=== PATIENT | female | born 1995 | race Caucasian/White ===

== ENCOUNTER 2022-08-04 12:14 | Emergency (ER) | payer OTHER, SELFPAY ==
[2022-08-04 13:15] VITALS: BP 124/69; PULSE 78; RESP 16; TEMP 35.9; O2SAT 99; BMI 28.2
[2022-08-04] MEDS: ONDANSETRON 4 MG/2 ML INJ IV (13:33)
[2022-08-04] MEDS: SODIUM CHLORIDE 0.9% 1,000 ML 1000 ML IV ×2 (13:33→14:41)
[2022-08-04 13:44] LABS: Add Manual Diff / Slide Review NO; Basophils Absolute Auto 100 /uL (0-100); Basophils Percent Auto 0.8 % (0-2); Eosinophils Absolute Auto 100 /uL (0-450); Eosinophils Percent Auto 1.1 % (2-4); Hematocrit 37.2 % (36-46); Hemoglobin 12.7 g/dL (12.0-16.0); Lymphocytes Absolute Auto 1700 /uL (1100-4500); Lymphocytes Percent Auto 27.2 % (25-40); Mean Corpuscular HGB Conc 34.1 % (30-36); Mean Corpuscular Volume 85.2 fL (80-100); Monocytes Absolute Auto 500 /uL (0-900); Monocytes Percent Auto 8.3 % (3-14); Neutrophils Absolute Auto 4000 /uL (1500-7000); Neutrophils Percent Auto 62.6 % (50-75); Platelet Count 315 X10^3/uL (150-400); Red Blood Cell Count 4.37 X10^6/uL (4.0-5.2); Red Cell Distribution Width 13.6 % (11.6-14.8); White Blood Cell Count 6.4 X10^3/uL (4.5-11.0)
[2022-08-04 13:50] LABS: Alanine Aminotransferase 18 IU/L (<35); Albumin 4.7 g/dL (3.5-5.0); Albumin Globulin Ratio 1.5 (1.0-2.8); Alkaline Phosphatase 41 U/L (38-126); Aspartate Aminotransferase 19 IU/L (14-36); BUN Creatinine Ratio 12.6 (6-22); Bilirubin Total 0.9 mg/dL (0.2-1.3); Blood Urea Nitrogen 13 mg/dL (7-17); Calcium 9.6 mg/dL (8.4-10.2); Carbon Dioxide 30 mmol/L (22-32); Chloride 101 mmol/L (98-107); Estimated Glomerular Filt Rate > 60 mL/min (>60); Globulin 3.2 g/dL (1.7-4.1); Glucose 96 mg/dL (70-100); HEMOLYSIS < 15 (0-50); Sodium 142 mmol/L (137-145); Total Protein 7.9 g/dL (6.3-8.2)
--- NOTE | 2022-08-04 14:16 | ED_ITS ---
HPI - Nausea/Vomiting/Diarrhea <OCHOA Pappas - Last Filed: 08/04/22 15:39> General Chief complaint: Nausea/Vomiting/Diarrhea Stated complaint: nausea/no appetite x7 days Time Seen by Provider: 08/04/22 14:07 History of Present Illness HPI Narrative: 26-year-old female presents to the walk-in clinic with headache x2 weeks and lightheadedness, nausea and vomiting x1 week. Patient has been unable to keep anything down for the last 2 days and was dry heaving in the waiting room. Patient reports that she is trying to get and had similar symptoms the last time she had gotten , before the miscarriage - December 2021. Patient states that her urine tests were typically negative until she was further along when the hCG quant was positive. Patient denies any recent illness or any pain at this time. Last menstrual period was last month and is due any day. Related Data Previous Rx's Medication Instructions Recorded ondansetron 4 mg disintegrating 4 mg PO Q8H PRN nausea and 08/06/22 tablet vomiting #14 tabs Allergies Allergy/AdvReac Type Severity Reaction Status Date / Time Penicillins Allergy Verified 08/04/22 13:19 Review of Systems <OCHOA Pappas - Last Filed: 08/04/22 15:39> Review of Systems Narrative: Narrative: See HPI. GENERAL: Denies chills, fatigue, fever, sweats. HEENT: Denies sinus pain, ear pain, sore throat, difficulty swallowing. Endorses mild dizziness. RESPIRATORY: Denies dyspnea, cough, wheezing, sputum. CARDIOVASCULAR: Denies chest pain, palpitations, edema. GASTROINTESTINAL: Denies abdominal pain, diarrhea, constipation. Endorses nausea and vomiting with or without eating or drinking. : Denies dysuria, frequency, incontinence, hematuria, urinary retention, flank pain, vaginal itching, bleeding or discharge. MSK: Denies weakness, joint pain, or bony pain. No breast tenderness. SKIN: Denies rash, skin lesions, or pruritis. NEUROLOGIC: Denies weakness, dizziness, headache, numbness, confusion. PSYCHIATRIC: No concerning psychosocial issues. Patient History <OCHOA Pappas - Last Filed: 08/04/22 15:39> Social History Smoking Status: Never smoker Exam <OCHOA Pappas - Last Filed: 08/04/22 15:39> Narrative Exam Narrative: Exam Narrative: GENERAL: This is a well-nourished, well-developed patient, in no acute distress. HEAD: Atraumatic. Normocephalic. EYES: Pupils equal round and reactive. No scleral icterus, injection or drainage. CARDIOVASCULAR: Regular rate and rhythm without murmurs, peripheral pulses intact, cap refill <2 sec. RESPIRATORY: Breath sounds equal and clear bilaterally. No wheezes, rales, or rhonchi. No cough. No increased respiratory effort. No accessory muscle use. GASTROINTESTINAL: Abdomen soft, non-tender, nondistended without guarding or rebound. No suprapubic pain. MSK: Moves all extremities. Normal range of motion, no clubbing or edema. Neurovascularly intact. NEURO: A&O x 3. SKIN: Warm, dry, no rashes or lesions noted. Initial Vital Signs Initial Vital Signs: Vital Signs Temperature 96.7 F L 08/04/22 13:15 Pulse Rate 78 08/04/22 13:15 Respiratory Rate 16 08/04/22 13:15 Blood Pressure 124/69 08/04/22 13:15 Pulse Oximetry 99 08/04/22 13:15 Oxygen Delivery Method 08/04/22 13:15 Reviewed <Ольга Gordon DO - Last Filed: 08/06/22 21:29> Initial Vital Signs Initial Vital Signs: Vital Signs Temperature 96.7 F L 08/04/22 13:15 Pulse Rate 78 08/04/22 13:15 Respiratory Rate 16 08/04/22 13:15 Blood Pressure 124/69 08/04/22 13:15 Pulse Oximetry 99 08/04/22 13:15 Oxygen Delivery Method 08/04/22 13:15 Course <OCHOA Pappas - Last Filed: 08/04/22 15:39> Orders Ordered: Discontinued Medications Sodium Chloride (Normal Saline 0.9%) 1,000 mls @ 1,000 mls/hr IV BOLUS ONE Stop: 08/04/22 14:19 Last Infusion: 08/04/22 14:27 Dose: 0 mls/hr Documented By: Admin: 08/04/22 13:33 Dose: 1,000 mls/hr Documented By: MORENO Sodium Chloride (Normal Saline 0.9%) 1,000 mls @ 1,000 mls/hr IV BOLUS ONE Stop: 08/04/22 15:34 Last Infusion: 08/04/22 15:35 Dose: 0 mls/hr Documented By: Admin: 08/04/22 14:41 Dose: 1,000 mls/hr Documented By: BRADEN Ondansetron HCl (Ondansetron 4 Mg/2 Ml Inj) 4 mg IV NOW ONE Stop: 08/04/22 13:21 Last Admin: 08/04/22 13:33 Dose: 4 mg Documented By: CTS Vital Signs Vital signs: Vital Signs - 8 hr 08/04/22 13:15 Temperature 96.7 F L Pulse Rate 78 Respiratory Rate 16 Blood Pressure 124/69 Pulse Oximetry 99 Oxygen Delivery Method Room Air <Ольга Gordon DO - Last Filed: 08/06/22 21:29> Orders Ordered: Discontinued Medications Sodium Chloride (Normal Saline 0.9%) 1,000 mls @ 1,000 mls/hr IV BOLUS ONE Stop: 08/04/22 14:19 Last Infusion: 08/04/22 14:27 Dose: 0 mls/hr Documented By: Admin: 08/04/22 13:33 Dose: 1,000 mls/hr Documented By: MORENO Sodium Chloride (Normal Saline 0.9%) 1,000 mls @ 1,000 mls/hr IV BOLUS ONE Stop: 08/04/22 15:34 Last Infusion: 08/04/22 15:35 Dose: 0 mls/hr Documented By: Admin: 08/04/22 14:41 Dose: 1,000 mls/hr Documented By: BRADEN Ondansetron HCl (Ondansetron 4 Mg/2 Ml Inj) 4 mg IV NOW ONE Stop: 08/04/22 13:21 Last Admin: 08/04/22 13:33 Dose: 4 mg Documented By: MORENO Vital Signs Vital signs: Vital Signs - 8 hr 08/04/22 13:15 Temperature 96.7 F L Pulse Rate 78 Respiratory Rate 16 Blood Pressure 124/69 Pulse Oximetry 99 Oxygen Delivery Method Room Air MDM - Nausea/Vomiting/Diarrhea <OCHOA Pappas - Last Filed: 08/04/22 15:39> Differential Diagnosis Differential diagnosis: Likely other (Nausea and vomiting/ viral illness) Lab Data Result diagrams: 08/04/22 13:28 08/04/22 13:28 Labs: Lab Results 08/04/22 08/04/22 Range/Units 13:28 13:28 WBC 6.4 (4.5-11.0) X10^3/uL RBC 4.37 (4.0-5.2) X10^6/uL Hgb 12.7 (12.0-16.0) g/dL Hct 37.2 (36-46) % MCV 85.2 (80-100) fL MCH 29.0 (26-34) PG MCHC 34.1 (30-36) % RDW 13.6 (11.6-14.8) % Plt Count 315 (150-400) X10^3/uL Neut % (Auto) 62.6 (50-75) % Lymph % (Auto) 27.2 (25-40) % [place] % (Auto) 8.3 (3-14) % Eos % (Auto) 1.1 L (2-4) % Baso % (Auto) 0.8 (0-2) % Neut # (Auto) 4000 (2300-1713) /uL Lymph # (Auto) 1700 (8202-9847) /uL [place] # (Auto) 500 (0-900) /uL Eos # (Auto) 100 (0-450) /uL Baso # (Auto) 100 (0-100) /uL Sodium 142 (137-145) mmol/L Potassium 4.0 (3.4-5.1) mmol/L Chloride 101 (98-107) mmol/L Carbon Dioxide 30 (22-32) mmol/L BUN 13 (7-17) mg/dL Creatinine 1.03 (0.52-1.04) mg/dL Estimated GFR > 60 (>60) mL/min BUN/Creatinine Ratio 12.6 (6-22) Glucose 96 (70-100) mg/dL Calcium 9.6 (8.4-10.2) mg/dL Total Bilirubin 0.9 (0.2-1.3) mg/dL AST 19 (14-36) IU/L ALT 18 (<35) IU/L Alkaline Phosphatase 41 (38-126) U/L Total Protein 7.9 (6.3-8.2) g/dL Albumin 4.7 (3.5-5.0) g/dL Globulin 3.2 (1.7-4.1) g/dL Albumin/Globulin Ratio 1.5 (1.0-2.8) HCG, Quant < 2.4 mIU/mL Point of Care Testing Test Results Negative Urine Dip Bedside Urine Glucose Negative Bedside Urine Bilirubin - Negative Bedside Urine Ketone - Negative Urine Specific [place] 1.005 Bedside Urine Occult Blood - Negative Bedside Urine pH 8.0 Bedside Urine Protein - Negative Bedside Urine Urobilinogen - Negative Bedside Urine Nitrite - Negative Bedside Urine Leukocytes - Negative Esterase MDM Narrative Medical decision making narrative: 26-year-old female presents to the walk-in clinic with nausea and vomiting x2 days. Patient reports that she is feeling better after 1 L of normal saline and ondansetron. Assessment was encouraging. Labs were all unremarkable, urine hCG and blood quant were both negative. Patient has received 2 L of normal saline a nd is feeling better, has urinated, and is able to drink without nausea vomiting.. Patient a little discouraged because they were hoping that she was . I suspect patient is having a viral illness which is the cause for the nausea and vomiting. Discussed plan of care and return precautions with patient and , who were agreeable with course of action. <Ольга Gordon, DO - Last Filed: 08/06/22 21:29> Lab Data Labs: Lab Results 08/04/22 08/04/22 Range/Units 13:28 13:28 WBC 6.4 (4.5-11.0) X10^3/uL RBC 4.37 (4.0-5.2) X10^6/uL Hgb 12.7 (12.0-16.0) g/dL Hct 37.2 (36-46) % MCV 85.2 (80-100) fL MCH 29.0 (26-34) PG MCHC 34.1 (30-36) % RDW 13.6 (11.6-14.8) % Plt Count 315 (150-400) X10^3/uL Neut % (Auto) 62.6 (50-75) % Lymph % (Auto) 27.2 (25-40) % [place] % (Auto) 8.3 (3-14) % Eos % (Auto) 1.1 L (2-4) % Baso % (Auto) 0.8 (0-2) % Neut # (Auto) 4000 (9767-6174) /uL Lymph # (Auto) 1700 (4494-6934) /uL [place] # (Auto) 500 (0-900) /uL Eos # (Auto) 100 (0-450) /uL Baso # (Auto) 100 (0-100) /uL Sodium 142 (137-145) mmol/L Potassium 4.0 (3.4-5.1) mmol/L Chloride 101 (98-107) mmol/L Carbon Dioxide 30 (22-32) mmol/L BUN 13 (7-17) mg/dL Creatinine 1.03 (0.52-1.04) mg/dL Estimated GFR > 60 (>60) mL/min BUN/Creatinine Ratio 12.6 (6-22) Glucose 96 (70-100) mg/dL Calcium 9.6 (8.4-10.2) mg/dL Total Bilirubin 0.9 (0.2-1.3) mg/dL AST 19 (14-36) IU/L ALT 18 (<35) IU/L Alkaline Phosphatase 41 (38-126) U/L Total Protein 7.9 (6.3-8.2) g/dL Albumin 4.7 (3.5-5.0) g/dL Globulin 3.2 (1.7-4.1) g/dL Albumin/Globulin Ratio 1.5 (1.0-2.8) HCG, Quant < 2.4 mIU/mL Point of Care Testing Test Results Negative Urine Dip Bedside Urine Glucose Negative Bedside Urine Bilirubin - Negative Bedside Urine Ketone - Negative Urine Specific [place] 1.005 Bedside Urine Occult Blood - Negative Bedside Urine pH 8.0 Bedside Urine Protein - Negative Bedside Urine Urobilinogen - Negative Bedside Urine Nitrite - Negative Bedside Urine Leukocytes - Negative Esterase Discharge Plan Departure Patient Disposition: Home Clinical Impression: Acute vomiting Instructions: DI for Dehydration -- Adult, Nausea and Vomiting-Adult Activity Restrictions/Additional Instructions: *You have been diagnosed with nausea and vomiting secondary to a viral illness. As we discussed, your labs were normal and the urine hCG and blood test were both negative. We have been able to fully hydrate you and should hopefully help with your symptoms. Please continue to drink small amounts of water at a time to facilitate hydration without causing vomiting. For any worsening symptoms, please feel free to return to the emergency department, otherwise, please follow-up with your family doctor as needed. *What to do: *Please continue to take your regular medications as directed. [ ] New medication prescriptions sent to your pharmacy: [ ] [ ] New medication written as a paper prescription [x ] No new medications given *Please follow up with your primary care provider in 2-3 days, call for an appointment. Let them know you were seen in the Emergency Department and that we ask that you be seen in follow up. We will electronically transmit a record of today's note if your PCP is in our system *If you do not have a primary care provider please contact the [facility] Resource line at [phone]. They will ask some questions about your medical history and help get you set up with a doctor in the community. ? Return to ER if you should have any new, worsening or concerning symptoms, such as worsening pain, severe headache, confusion, chest pain, difficulty breathing, fever greater than 101 F, shaking chills, persistent vomiting to the point that you cannot drink fluids, or other new or worsening symptoms. Prescriptions: No Action ondansetron 4 mg tablet,disintegrating 4 mg PO Q8H PRN (Reason: nausea and vomiting) Qty: 14 0RF Visit Report Forms: Patient Portal/API <Ольга Gordon DO - Last Filed: 08/06/22 21:29> [facility] Attestation: I was immediately available in the department for consultation. Documentation has been reviewed. I agree with assessment and plan.
[2022-08-04 14:18] LABS: HCG Quantitative /Beta subunit < 2.4 mIU/mL
[2022-08-04 15:52] VITALS: BP 124/72; PULSE 77; RESP 16; O2SAT 97
== END 2022-08-04 15:52 | disposition home or self-care (01) ==
PROVIDERS: Emergency Medicine; Emergency Provider Registered Nurse
DX: R11.2 Nausea with vomiting, unspecified (principal); E86.0 Dehydration
CPT/HCPCS: 36415; 80053; 81003; 81025; 84702; 85025; 96361; 96374; 99284; J2405

== ENCOUNTER 2022-08-06 12:35 | Emergency (ER) | payer OTHER, SELFPAY ==
[2022-08-06 12:41] VITALS: BP 124/74; PULSE 81; RESP 18; TEMP 36.2; O2SAT 99; BMI 27.0
[2022-08-06] MEDS: ONDANSETRON 4 MG ODT PO (12:51)
[2022-08-06 13:09] LABS: RBC Urine 1-5/HPF (0-5/HPF); WBC Urine 1-5/HPF (0-5/HPF)
[2022-08-06 13:10] LABS: Bacteria Urine None Seen; Culture Indicated Urine Specimen Cultured; Squamous Epithelial Cell Urine 1-5 /HPF (0-5/HPF)
[2022-08-06 13:32] VITALS: BP 112/72; PULSE 78; RESP 17; O2SAT 99
--- NOTE | 2022-08-06 15:07 | ED.NAVMDI ---
HPI - Nausea/Vomiting/Diarrhea <Halima Barragan PA-C - Last Filed: 08/06/22 15:11> General Chief complaint: Nausea/Vomiting/Diarrhea Stated complaint: ER visit 08/04 nausea/not able to eat Time Seen by Provider: 08/06/22 12:48 Source: patient Mode of arrival: Ambulatory History of Present Illness HPI Narrative: 26-year-old female presents to the ED with 5 days of nausea, vomiting. Patient was seen in the ED on 08/04/2022 for the same complaint, nausea controlled with IV fluids and Zofran. Patient returns today due to repeated vomiting, unable to keep down solids or liquids. Patient denies fever, chills, chest pain, shortness of breath, abdominal pain, diarrhea, constipation, lightheadedness, dizziness, syncope. 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 Related Data Previous Rx's Medication Instructions Recorded ondansetron 4 mg disintegrating 4 mg PO Q8H PRN nausea and 08/06/22 tablet vomiting #14 tabs Allergies Allergy/AdvReac Type Severity Reaction Status Date / Time Penicillins Allergy Verified 08/04/22 13:19 Review of Systems <Halima Barragan PA-C - Last Filed: 08/06/22 15:11> Review of Systems ROS Unobtainable: All systems reviewed & are unremarkable except as noted in HPI and below Constitutional Constitutional: Denies chills, Denies fatigue, Denies fever(s), Denies frequent falls, Denies lethargy and Denies weakness Eyes Eyes: Denies change in vision, Denies eye discharge, Denies irritation and Denies loss of vision ENT Ears, Nose, Mouth, and Throat: Denies change in voice, Denies dizziness, Denies neck pain, Denies sore throat and Denies throat swelling Cardiovascular Cardiovascular: Denies chest pain, Denies irregular heart rhythm, Denies lightheadedness, Denies palpitations, Denies dyspnea, Denies dyspnea on exertion and Denies orthopnea Respiratory Respiratory: Denies cough, Denies dyspnea, Denies dyspnea on exertion and Denies wheezing Gastrointestinal Gastrointestinal: Denies abdominal pain, Denies change in bowel habits, Denies diarrhea, Reports nausea and Reports vomiting Genitourinary Genitourinary: Denies hematuria, Denies flank pain, Denies urinary incontinence and Denies urinary urgency Musculoskeletal Musculoskeletal: Denies back pain, Denies muscle weakness, Denies neck pain, Denies numbness and Denies tingling Integumentary/Breasts Skin/Breast: Denies pruritus, Denies erythema, Denies rash and Denies wounds Neurologic Neurologic: Denies behavioral changes, Denies confusion, Denies dizziness, Denies frequent falls, Denies loss of vision, Denies numbness, Denies tingling and Denies weakness Psychiatric Psychiatric: Denies anxiety, Denies behavioral changes, Denies confusion, Denies depression, Denies homicidal ideation and Denies suicidal ideation Endocrine Endocrine: Denies fatigue, Denies flushing and Denies palpitations Hematologic/Lymphatic Hematologic/Lymphatic: Denies easy bruising Allergic/Immunologic Allergic/Immunologic: Denies urticaria, Denies throat swelling and Denies wheezing Patient History <Halima Barragan PA-C - Last Filed: 08/06/22 15:11> Social History Smoking Status: Never smoker Smoking Status: Never smoker alcohol intake frequency: a few times a month Substance Use Type: does not use Exam <Halima Barragan PA-C - Last Filed: 08/06/22 15:11> Narrative Exam Narrative: Const General:?cooperative, healthy appearing and comfortable [facility] Head:?normal to inspection Ears:?hearing grossly normal bilaterally Nose:?external nose normal Face and sinus:?normal facial exam and sinuses nontender Mouth:?oral mucosae normal Throat:?posterior oropharynx normal Eyes General:?appearance normal, both eyes and all related structures Neck Neck:?normal visual inspection and no lymphadenopathy noted Resp Effort & Inspection:?normal respiratory effort Auscultation:?clear to auscultation bilaterally Cardio Rate:?regular rate Rhythm:?regular rhythm GI Abdomen is soft, nondistended, nontender to palpation. Neuro General:?patient alert, patient awake and patient oriented x3 Initial Vital Signs Initial Vital Signs: Vital Signs Temperature 97.1 F L 08/06/22 12:41 Pulse Rate 81 08/06/22 12:41 Respiratory Rate 18 08/06/22 12:41 Blood Pressure 124/74 08/06/22 12:41 Pulse Oximetry 99 08/06/22 12:41 Oxygen Delivery Method 08/06/22 12:41 <Vitaliy Ridley DO - Last Filed: 08/06/22 16:13> Initial Vital Signs Initial Vital Signs: Vital Signs Temperature 97.1 F L 08/06/22 12:41 Pulse Rate 81 08/06/22 12:41 Respiratory Rate 18 08/06/22 12:41 Blood Pressure 124/74 08/06/22 12:41 Pulse Oximetry 99 08/06/22 12:41 Oxygen Delivery Method 08/06/22 12:41 Course <Halima Barragan PA-C - Last Filed: 08/06/22 15:11> Orders Ordered: ED Orders 08/06/22 12:55 Urine Culture Stat Urine Microscopic Stat Discontinued Medications Ondansetron HCl (Ondansetron 4 Mg Odt) 4 mg PO NOW ONE Stop: 08/06/22 12:49 Last Admin: 08/06/22 12:51 Dose: 4 mg Documented By: ALTHEA Vital Signs Vital signs: Vital Signs - 8 hr 08/06/22 12:41 08/06/22 13:32 Temperature 97.1 F L Pulse Rate 81 78 Respiratory Rate 18 17 Blood Pressure 124/74 112/72 Pulse Oximetry 99 99 Oxygen Delivery Method Room Air Room Air <Vitaliy Ridley DO - Last Filed: 08/06/22 16:13> Orders Ordered: ED Orders 08/06/22 12:55 Urine Culture Stat Urine Microscopic Stat Discontinued Medications Ondansetron HCl (Ondansetron 4 Mg Odt) 4 mg PO NOW ONE Stop: 08/06/22 12:49 Last Admin: 08/06/22 12:51 Dose: 4 mg Documented By: ALTHEA Vital Signs Vital signs: Vital Signs - 8 hr 08/06/22 12:41 08/06/22 13:32 Temperature 97.1 F L Pulse Rate 81 78 Respiratory Rate 18 17 Blood Pressure 124/74 112/72 Pulse Oximetry 99 99 Oxygen Delivery Method Room Air Room Air MDM - Nausea/Vomiting/Diarrhea <Halima Barragan PA-C - Last Filed: 08/06/22 15:11> Lab Data Labs: Lab Results 08/06/22 Range/Units 12:55 Urine RBC 1-5/hpf (0-5/HPF) Urine WBC 1-5/hpf (0-5/HPF) Ur Squamous Epith Cells 1-5 /hpf (0-5/HPF) Urine Bacteria None seen (None) Ur Culture Indicated? Specimen cultured Point of Care Testing Test Results Negative Urine Dip Bedside Urine Glucose Negative Bedside Urine Bilirubin - Negative Bedside Urine Ketone - Negative Urine Specific [place] 1.020 Bedside Urine Occult Blood +++ Bedside Urine pH 6.0 Bedside Urine Protein - Negative Bedside Urine Urobilinogen - Negative Bedside Urine Nitrite - Negative Bedside Urine Leukocytes - Negative Esterase MDM Narrative Medical decision making narrative: 26-year-old female presents to the ED with 5 days of nausea, vomiting. Patient's symptoms likely due to gastroenteritis. Patient has nausea and vomiting was controlled with Zofran. Discharge patient home with a prescription for Zofran, recommend continued hydration. ED return precautions discussed with patient. Patient verbalized understanding. <Vitaliy Ridley DO - Last Filed: 08/06/22 16:13> Lab Data Labs: Lab Results 08/06/22 Range/Units 12:55 Urine RBC 1-5/hpf (0-5/HPF) Urine WBC 1-5/hpf (0-5/HPF) Ur Squamous Epith Cells 1-5 /hpf (0-5/HPF) Urine Bacteria None seen (None) Ur Culture Indicated? Specimen cultured Point of Care Testing Test Results Negative Urine Dip Bedside Urine Glucose Negative Bedside Urine Bilirubin - Negative Bedside Urine Ketone - Negative Urine Specific [place] 1.020 Bedside Urine Occult Blood +++ Bedside Urine pH 6.0 Bedside Urine Protein - Negative Bedside Urine Urobilinogen - Negative Bedside Urine Nitrite - Negative Bedside Urine Leukocytes - Negative Esterase Discharge Plan Departure Patient Disposition: Home Clinical Impression: Acute vomiting Instructions: DI for Vomiting -- Adult Activity Restrictions/Additional Instructions: You were evaluated in the ED today for nausea and vomiting. Your symptoms improved with Zofran. Your symptoms are likely due to a stomach flu or gastroenteritis. You are being discharged home with a prescription for Zofran. Please continue to stay well hydrated. Return to the ED if you are vomiting despite taking the Zofran, you were unable to keep down any water or solids. Prescriptions: New ondansetron 4 mg tablet,disintegrating 4 mg PO Q8H PRN (Reason: nausea and vomiting) Qty: 14 0RF Stand Alone Forms: Work Release Note Visit Report Forms: Patient Portal/API <DO Chantal Ceja Last Filed: 08/06/22 16:13> Cosign ED Attending Cosignature Attestation: Dr Ridley Co-Sign Statement: I was available for consultation during this patient's emergency department visit. This chart is signed by myself for administrative purposes only. I did not have direct contact with this patient during this visit. They were seen independently by the APC.
== END 2022-08-06 14:22 | disposition home or self-care (01) ==
PROVIDERS: Emergency Provider Student in an Organized Health Care Education/Training Program
DX: R11.2 Nausea with vomiting, unspecified (principal)
CPT/HCPCS: 81003; 81015; 81025; 87086; 99283

== ENCOUNTER 2022-08-26 09:19 | Emergency (ER) | payer OTHER, SELFPAY ==
[2022-08-26 09:31] VITALS: BP 116/86; PULSE 88; RESP 16; O2SAT 97; BMI 26.3
--- NOTE | 2022-08-26 10:37 | DI.US.S_ITS ---
PROCEDURE: US ABDOMEN LIMITED INDICATIONS: ABDOMINAL PAIN TECHNIQUE: Real-time focused scanning was performed of the abdomen, with image documentation. COMPARISON: None. FINDINGS: The liver is normal in size and demonstrates no focal lesions. The main portal vein demonstrates normal size and demonstrates normal appearing, hepatopetal flow. No findings of gallstones or sludge are seen. The gallbladder wall is not thickened, measuring 3 mm or less. No specific pericholecystic fluid is seen. The sonographic Escobedo sign is negative. There is no biliary dilatation, the common bile duct measures 3 mm. No significant pancreatic abnormality is seen on these images. Incidental note is made of mild right kidney pelvicaliectasis, without lily hydronephrosis. IMPRESSION: The gallbladder demonstrates a normal sonographic appearance. No biliary dilatation is seen. Mild right kidney pelvicaliectasis is noted, yet without lily hydronephrosis. Dictated by: Enrike Hernandez M.D. on 08/26/2022 at 11:32 Approved by: Enrike Hernandez M.D. on 08/26/2022 at 11:32
--- NOTE | 2022-08-26 10:38 | ED.NAVMDI ---
HPI - Nausea/Vomiting/Diarrhea General Chief complaint: Nausea/Vomiting/Diarrhea Stated complaint: stomach issues, nausea, here 1 month ago Time Seen by Provider: 08/26/22 10:27 History of Present Illness HPI Narrative: Patient here with partner. Complains of generalized abdominal discomfort for the past 4 weeks. Worse with eating and causes cramping. Has nausea with this. [facility] and had blood work done but did not include H pylori. No imaging has been done. Patient seen here twice earlier this month. No imaging was done. Patient has not been referred to GI specialist or general surgeon for endoscopy. Patient in no distress at this time. Related Data Previous Rx's Medication Instructions Recorded ondansetron 4 mg disintegrating 4 mg PO Q8H PRN nausea and 08/06/22 tablet vomiting #14 tabs dicyclomine 20 mg tablet 20 mg PO BID #20 tabs 08/26/22 sucralfate 1 gram tablet (Carafate) 1 g PO BID #30 tabs 08/26/22 Allergies Allergy/AdvReac Type Severity Reaction Status Date / Time Penicillins Allergy Verified 08/04/22 13:19 Review of Systems Review of Systems Narrative: GENERAL: negative chills, fatigue, malaise, fever, sweats. HEENT: negative sinus pain, ear pain, sore throat RESPIRATORY: negative dyspnea, cough CARDIOVASCULAR: negative chest pain, palpitations GASTROINTESTINAL: Positive nausea, vomiting, abdominal pain : negative dysuria, frequency, hematuria MUSCULOSKELETAL: negative muscle or bony pain SKIN: negative rash, skin lesions NEUROLOGIC: negative weakness, numbness ROS Unobtainable: All systems reviewed & are unremarkable except as noted in HPI and below Patient History Social History Smoking Status: Never smoker Smoking Status: Never smoker alcohol intake frequency: a few times a month Substance Use Type: does not use Exam Narrative Exam Narrative: GENERAL: in no distress, not toxic not dyspneic HEAD: Normocephalic. EYES: Pupils equal round No scleral icterus. ENT: Mucous membranes moist. NECK: Trachea midline. CARDIOVASCULAR: Regular rate and rhythm without murmurs RESPIRATORY: Clear to auscultation. Breath sounds equal bilaterally. No wheezes, rales, or rhonchi. GASTROINTESTINAL: Abdomen soft, non-tender, no CVA tenderness, negative Escobedo sign. No CVA tenderness. No peritoneal signs. Bowel sounds are present EXTREMITIES: No gross deformities. BACK: No flank tenderness. NEURO: AOx4. SKIN: Warm and dry PSYCH: Not anxious, is cooperative Initial Vital Signs Initial Vital Signs: Vital Signs Pulse Rate 88 08/26/22 09:31 Respiratory Rate 16 08/26/22 09:31 Blood Pressure 116/86 08/26/22 09:31 Pulse Oximetry 97 08/26/22 09:31 Oxygen Delivery Method 08/26/22 09:31 Course Course Course Narrative: No new issues during course of stay Orders Ordered: ED Orders 08/26/22 10:37 US abdomen limited Stat 08/26/22 10:55 CBC Auto Diff [Complete Blood Count AUTO DIFF] Stat CMP [Comprehensive Metabolic Panel] Stat H pylori Ab, IgG Stat Lipase Stat Reevaluation(s) Reevaluation #1: Patient and partner understand H pylori is a send out. She will have to call back for results. She does have primary care to follow up as well. Referral to General surgery for endoscopy given. Return precautions reviewed with her. She does desire discharge home Time: 13:27 Vital Signs Vital signs: Vital Signs - 8 hr 08/26/22 09:31 08/26/22 13:10 Pulse Rate 88 81 Respiratory Rate 16 18 Blood Pressure 116/86 119/67 Pulse Oximetry 97 95 Oxygen Delivery Method Room Air Room Air MDM - Nausea/Vomiting/Diarrhea Differential Diagnosis Differential diagnosis: Likely other (Cholelithiasis cholecystitis gastritis GERD hiatal hernia/IBS) Lab Data Result diagrams: 08/26/22 10:55 08/26/22 10:55 Labs: Lab Results 08/26/22 08/26/22 Range/Units 10:55 10:55 WBC 7.0 (4.5-11.0) X10^3/uL RBC 4.49 (4.0-5.2) X10^6/uL Hgb 13.0 (12.0-16.0) g/dL Hct 38.3 (36-46) % MCV 85.3 (80-100) fL MCH 28.9 (26-34) PG MCHC 33.9 (30-36) % RDW 13.6 (11.6-14.8) % Plt Count 298 (150-400) X10^3/uL Neut % (Auto) 64.6 (50-75) % Lymph % (Auto) 26.9 (25-40) % [place] % (Auto) 7.4 (3-14) % Eos % (Auto) 0.5 L (2-4) % Baso % (Auto) 0.6 (0-2) % Neut # (Auto) 4500 (7407-8464) /uL Lymph # (Auto) 1900 (0102-7380) /uL [place] # (Auto) 500 (0-900) /uL Eos # (Auto) 0 (0-450) /uL Baso # (Auto) 0 (0-100) /uL Sodium 139 (137-145) mmol/L Potassium 4.1 (3.4-5.1) mmol/L Chloride 101 (98-107) mmol/L Carbon Dioxide 29 (22-32) mmol/L BUN 12 (7-17) mg/dL Creatinine 0.97 (0.52-1.04) mg/dL Estimated GFR > 60 (>60) mL/min BUN/Creatinine Ratio 12.4 (6-22) Glucose 92 (70-100) mg/dL Calcium 9.0 (8.4-10.2) mg/dL Total Bilirubin 0.7 (0.2-1.3) mg/dL AST 15 (14-36) IU/L ALT 14 (<35) IU/L Alkaline Phosphatase 43 (38-126) U/L Total Protein 7.6 (6.3-8.2) g/dL Albumin 4.5 (3.5-5.0) g/dL Globulin 3.1 (1.7-4.1) g/dL Albumin/Globulin Ratio 1.5 (1.0-2.8) Lipase 88 (23-300) U/L Urine Dip Bedside Urine Glucose Negative Bedside Urine Bilirubin - Negative Bedside Urine Ketone - Negative Urine Specific [place] 1.010 Bedside Urine Occult Blood - Negative Bedside Urine pH 7.5 Bedside Urine Protein - Negative Bedside Urine Urobilinogen - Negative Bedside Urine Nitrite - Negative Bedside Urine Leukocytes - Negative Esterase Imaging Data US - abdomen: Radiologist's Impression: [address] [address] Ultrasound Report Signed Patient: Sammi Meade MR#: [id number] : 1995 Acct:[id number] Age/Sex: 26 / F Date of Service: 08/26/22 Loc: ED Accession Number: [id number] ?? Procedure: US abdomen limited Ordering Provider: Gal Sol MD PROCEDURE: US ABDOMEN LIMITED ? INDICATIONS:? ABDOMINAL PAIN ? TECHNIQUE:? Real-time focused scanning was performed of the abdomen, with image documentation.? ? COMPARISON:? None. ? FINDINGS:? The liver is normal in size and demonstrates no focal lesions. The main portal vein demonstrates normal size and demonstrates normal appearing, hepatopetal flow.? ? No findings of gallstones or sludge are seen.? The gallbladder wall is not thickened, measuring 3 mm or less.? No specific pericholecystic fluid is seen.? The sonographic Escobedo sign is negative. ? There is no biliary dilatation, the common bile duct measures 3 mm.? ? No significant pancreatic abnormality is seen on these images.? ? Incidental note is made of mild right kidney pelvicaliectasis, without lily hydronephrosis. ? ? IMPRESSION:? The gallbladder demonstrates a normal sonographic appearance. No biliary dilatation is seen. ? Mild right kidney pelvicaliectasis is noted, yet without lily hydronephrosis. ? ? Dictated by: Enrike Hernandez M.D. on 08/26/2022 at 11:32 ? ? Approved by: Enrike Hernandez M.D. on 08/26/2022 at 11:32 ? MDM Narrative Medical decision making narrative: Appropriate for discharge home for outpatient follow up for endoscopy EGD and GI referral from primary care. I did give patient referral for General surgery here. Pain and nausea control at time of discharge. Return precautions reviewed with her. Patient and partner desire discharge home Discharge Plan Departure Patient Disposition: Home Clinical Impression: Abdominal pain Instructions: DI for Abdominal Pain-Adult Activity Restrictions/Additional Instructions: Continue home medications and nausea medication. Return if worse if any questions or concerns. Please call provided general surgery office to schedule endoscopy of the stomach. H pylori blood test will likely result in the next 48 hours. You may call for results. Return if worse if any questions or concerns. No fried fatty greasy foods or spicy foods. Prescriptions: New sucralfate [Carafate] 1 gram tablet 1 g PO BID Qty: 30 0RF dicyclomine 20 mg tablet 20 mg PO BID Qty: 20 0RF No Action ondansetron 4 mg tablet,disintegrating 4 mg PO Q8H PRN (Reason: nausea and vomiting) Qty: 14 0RF Referrals: Jackson Gao MD [Physician] - Provider,Shakila CASILLAS [Primary Care Provider] - Visit Report Forms: Patient Portal/API
[2022-08-26 11:14] LABS: Add Manual Diff / Slide Review NO; Basophils Absolute Auto 0 /uL (0-100); Basophils Percent Auto 0.6 % (0-2); Eosinophils Absolute Auto 0 /uL (0-450); Eosinophils Percent Auto 0.5 % (2-4); Hematocrit 38.3 % (36-46); Lymphocytes Absolute Auto 1900 /uL (1100-4500); Lymphocytes Percent Auto 26.9 % (25-40); Mean Corpuscular HGB Conc 33.9 % (30-36); Mean Corpuscular Hemoglobin 28.9 PG (26-34); Mean Corpuscular Volume 85.3 fL (80-100); Monocytes Absolute Auto 500 /uL (0-900); Monocytes Percent Auto 7.4 % (3-14); Neutrophils Absolute Auto 4500 /uL (1500-7000); Neutrophils Percent Auto 64.6 % (50-75); Platelet Count 298 X10^3/uL (150-400); Red Blood Cell Count 4.49 X10^6/uL (4.0-5.2); Red Cell Distribution Width 13.6 % (11.6-14.8)
[2022-08-26 11:40] LABS: Alanine Aminotransferase 14 IU/L (<35); Albumin 4.5 g/dL (3.5-5.0); Albumin Globulin Ratio 1.5 (1.0-2.8); Alkaline Phosphatase 43 U/L (38-126); Aspartate Aminotransferase 15 IU/L (14-36); BUN Creatinine Ratio 12.4 (6-22); Bilirubin Total 0.7 mg/dL (0.2-1.3); Blood Urea Nitrogen 12 mg/dL (7-17); Carbon Dioxide 29 mmol/L (22-32); Chloride 101 mmol/L (98-107); Estimated Glomerular Filt Rate > 60 mL/min (>60); Globulin 3.1 g/dL (1.7-4.1); Glucose 92 mg/dL (70-100); HEMOLYSIS < 15 (0-50); Lipase 88 U/L (23-300); Potassium 4.1 mmol/L (3.4-5.1); Sodium 139 mmol/L (137-145); Total Protein 7.6 g/dL (6.3-8.2)
[2022-08-26 13:10] VITALS: BP 119/67; PULSE 81; RESP 18; O2SAT 95
--- NOTE | 2022-08-30 16:34 | PC.NURSE ---
pt called asking about result of H pylori. lab still pending.
--- NOTE | 2022-10-10 19:20 | PM.CALLCOV.1 ---
Call Coverage Note Note Date of Patient Contact: 10/10/22 Time of Patient Contact: 19:00 Narrative of Care Provided: Sammi called to report more bleeding since this morning. Had a blob of brown discharge approx the size of a scarlett. Denies any cramping or red vaginal bleeding. History of SAB x 1 at 8 weeks that did not involve much pain, but lots of bleeding. This does not remind her of that time, but is concerning to her. Has not yet had appointment for . Scheduled with Dr. Ware next week. approx 9 weeks Unknown blood type Review s/sx of SAB and warning signs/when to call back. Provided reassurance and realistic expectations about early bleeding.
== END 2022-08-26 13:34 | disposition home or self-care (01) ==
PROVIDERS: Emergency Provider Emergency Medicine
DX: R10.84 Generalized abdominal pain (principal)
CPT/HCPCS: 36415; 76705; 80053; 81003; 81025; 83690; 85025; 86677; 99282; 99284

== ENCOUNTER → 2022-10-11 16:33 | Outpatient (CLI) | payer OTHER, SELFPAY ==
[2022-10-11 16:58] LABS: Add Manual Diff / Slide Review NO; Basophils Absolute Auto 0 /uL (0-100); Basophils Percent Auto 0.4 % (0-2); Eosinophils Absolute Auto 100 /uL (0-450); Eosinophils Percent Auto 0.9 % (2-4); Hematocrit 36.2 % (36-46); Hemoglobin 12.4 g/dL (12.0-16.0); Lymphocytes Absolute Auto 1800 /uL (1100-4500); Lymphocytes Percent Auto 26.8 % (25-40); Mean Corpuscular HGB Conc 34.2 % (30-36); Mean Corpuscular Hemoglobin 29.3 PG (26-34); Mean Corpuscular Volume 85.8 fL (80-100); Monocytes Absolute Auto 400 /uL (0-900); Monocytes Percent Auto 6.7 % (3-14); Neutrophils Absolute Auto 4300 /uL (1500-7000); Neutrophils Percent Auto 65.2 % (50-75); Platelet Count 341 X10^3/uL (150-400); Red Blood Cell Count 4.23 X10^6/uL (4.0-5.2); Red Cell Distribution Width 13.6 % (11.6-14.8); White Blood Cell Count 6.5 X10^3/uL (4.5-11.0)
[2022-10-11 18:00] LABS: Appearance Urine UA CLEAR; Bilirubin Urine UA NEGATIVE (NEGATIVE); Color Urine UA YELLOW; Glucose Urine UA NEGATIVE (Negative); Ketones Urine UA NEGATIVE (NEGATIVE); Leukocyte Esterase Urine UA NEGATIVE (NEGATIVE); Nitrite Urine UA NEGATIVE (Negative); Occult Blood Urine UA 2+ (Negative); Protein Urine UA NEGATIVE (Negative); Specific Gravity Urine UA 1.025 (1.000-1.035); Urobilinogen Urine UA 0.2 E.U./dL (0.2); pH Urine UA 6.5 (4.5-8.0)
[2022-10-11 18:15] LABS: Bacteria Urine Moderate (10-30); RBC Urine 1-5/HPF (0-5/HPF); Squamous Epithelial Cell Urine 1-5 /HPF (0-5/HPF); WBC Urine 0-1/HPF (0-5/HPF)
[2022-10-11 18:40] LABS: HCG Quantitative /Beta subunit 5655.6 mIU/mL
[2022-10-12 18:55] LABS: HIV 1 & 2 Ab/Ag 4th Gen Combo NEGATIVE (NEGATIVE); Hep C Virus Ab w/Reflex Quant NEGATIVE s/c (NEGATIVE); Hepatitis B Surface Antigen NEGATIVE s/c (NEGATIVE)
[2022-10-13 04:25] LABS: RPR Screen Non Reactive (Non Reactive)
[2022-10-13 08:10] LABS: Varicella IgG Antibody 2258 index (Immune >165)
== END ==
PROVIDERS: Referring Provider Obstetrics & Gynecology; Visit Provider Obstetrics & Gynecology
DX: O20.9 Hemorrhage in early pregnancy, unspecified (principal); Z3A.00 Weeks of gestation of pregnancy not specified
CPT/HCPCS: 36415; 80055; 81003; 81015; 84702; 86787; 86803; 86850; 86900; 86901; 87086; 87389

== ENCOUNTER 2022-10-12 05:45 | Emergency (ER) | payer OTHER, SELFPAY ==
--- NOTE | 2022-10-12 05:53 | DI.US.S_ITS ---
PROCEDURE: US OB <= 14 WEEKS FETUS INDICATIONS: BLEEDING, CRAMPING OUTSIDE/PRIOR DATING DATA: Last menstrual period (LMP): Unknown. LMP-based estimated date of delivery (GIANCARLO): Unknown. First dating scan (date and location): 10/12/2022. Estimated date of delivery (GIANCARLO) from first dating scan: 06/07/2023. TECHNIQUE: Real-time scanning was performed of the fetus and maternal pelvic organs, with image documentation. Endovaginal scanning was also performed to better visualize the fetus and maternal ovaries. COMPARISON: None. FINDINGS: Embryo: [place]-rump length measuring 0.3 cm corresponding to estimated gestational age of 6 weeks 0 days. Gestational sac is located in the lower uterine segment. Heart rate: No cardiac motion detected. A yolk sac is seen. Maternal organs: Ovaries are within normal limits. Left corpus luteum. IMPRESSION: 1. [place] intrauterine located in the lower uterine segment with crown rump length measuring less than 7 mm. No cardiac motion detected. Concern for portion in progress. Ultrasound findings suspicious for, but not diagnostic of failure. 2. No perigestational hemorrhage. Recommend trending beta hCG and if indicated short-term follow-up OB/pelvic ultrasound. This report is concordant with the overnight preliminary interpretation. We strive to produce accurate, complete, and clear reports of imaging services. To assist us in improving patient care, this report was composed using standard report templates and voice recognition software. Therefore, it may contain abnormal punctuation, insertions and/or omissions. Occasional wrong-word or sound-alike substitutions may occur. Though we review the report and make efforts to correct it, we do recommend that the report be read carefully in proper context to recognize any text inaccuracies. Dictated by: Bennie Fong M.D. on 10/12/2022 at 7:54 Approved by: Bennie Fong M.D. on 10/12/2022 at 8:00
--- NOTE | 2022-10-12 05:58 | ED.PREGNANCY ---
HPI - General Chief complaint: Vaginal Bleeding Stated complaint: possible miscarriage Time Seen by Provider: 10/12/22 05:49 Source: patient, RN notes reviewed and old records reviewed Mode of arrival: Ambulatory Limitations: no limitations History of Present Illness HPI Narrative: This is a 19-year-old female on bupropion, with 1 prior spontaneous miscarriage. Patient states last menstrual period was in July. She is believed to be approximately 9 weeks . Patient states she had some brownish discharge in the last 2 days and this morning developed a lower pelvic cramping and bright red vaginal bleeding. Patient noted some clots today. She went through a pad about 2 hours. Denies lightheadedness or passing out, no chest pain or shortness breath. She is had nausea but no active vomiting today. No other GI or urinary symptoms. No frequency, urgency or dysuria. No new vaginal discharge. Patient denies any prior surgeries. Allergic to penicillin. No tobacco, no alcohol currently, no illicit. Patient's care provider is Dr. Ware she has not had a formal ultrasound or bedside ultrasound yet with OB. Significant others at bedside. Related Data Home Medications Medication Instructions Recorded Confirmed albuterol sulfate 90 mcg/actuation 2 puff inhalation Q6H PRN 09/25/22 09/25/22 aerosol inhaler bupropion HCl 150 mg 24 hr tablet, 150 mg PO QAM 09/25/22 09/25/22 extended release cholecalciferol (vitamin D3) 125 125 mcg PO DAILY 09/25/22 09/25/22 mcg (5,000 unit) capsule (D3-5000) magnesium citrate 125 mg capsule 250 mg PO DAILY 09/25/22 09/25/22 mv-min-vit C-ascorb 1 tab PO DAILY 09/25/22 09/25/22 Lw-Noh-Own-herb #124 333 mg-1.7 mg chewable tablet (Airborne (ascorbate sodium)) prenat.vits,elroy,prp-ecxj-hyyry 1 tab PO DAILY 09/25/22 09/25/22 Previous Rx's Medication Instructions Recorded hydrocodone 5 mg-acetaminophen 325 1 tab PO Q6H PRN pain #14 tabs 10/12/22 mg tablet Allergies Allergy/AdvReac Type Severity Reaction Status Date / Time Penicillins Allergy Intermediate Hives Verified 09/25/22 09:45 Review of Systems Review of Systems ROS Unobtainable: All systems reviewed & are unremarkable except as noted in HPI and below Exam Narrative Exam Narrative: GENERAL: Alert and oriented x three, well-appearing female in mild distress. HEENT: Head normocephalic, atraumatic, EOMI, pupils reactive, face symmetric, moist mucous membranes NECK: Supple, full range of motion CARDIOVASCULAR: Regular rate and rhythm without murmurs, rubs or gallops. RESPIRATORY: Breath sounds equal bilaterally, no wheezes rales or rhonchi. ABDOMEN: Soft, nontender. Normoactive bowel sounds all 4 quadrants. No guarding or rebound, rigidity, no mass : No CVA tenderness EXTREMITIES: Normal range of motion, no clubbing or edema. Neurovascularly intact NEUROLOGICAL: Cranial nerves II through XII grossly intact. Moving all extremities SKIN: Warm, dry, no petechiae, no rashes or lesions. Initial Vital Signs Initial Vital Signs: Vital Signs Temperature 97.7 F 10/12/22 06:06 Pulse Rate 98 H 10/12/22 06:06 Respiratory Rate 16 10/12/22 06:06 Blood Pressure 121/80 10/12/22 06:06 Oxygen Delivery Method 10/12/22 06:06 Course Orders Ordered: Discontinued Medications Acetaminophen (Acetaminophen 325 Mg Tablet) 975 mg PO NOW ONE Stop: 10/12/22 05:59 Last Admin: 10/12/22 06:05 Dose: 975 mg Documented By: ALLEN Hydrocodone Bitart/Acetaminophen (Hydrocodone/Acet 5/325 Prepack) 1 bottle MISC SEEINSTR ONE Stop: 10/12/22 07:00 Last Admin: 10/12/22 07:05 Dose: 1 bottle Documented By: ROSA Ondansetron HCl (Ondansetron 4 Mg/2 Ml Inj) 4 mg IV NOW ONE Stop: 10/12/22 05:59 Last Admin: 10/12/22 06:05 Dose: 4 mg Documented By: ALLEN Consultations Consultation #1: Dr. Sierra/OBGYN: Reviewed findings from today they will reach out to the patient for today. Vital Signs Vital signs: Vital Signs - 8 hr 10/12/22 06:06 Temperature 97.7 F Pulse Rate 98 H Respiratory Rate 16 Blood Pressure 121/80 Oxygen Delivery Method Room Air MDM - OB/Uterine Contractions Lab Data Result diagrams: 10/12/22 06:00 10/12/22 06:00 Labs: Lab Results 10/12/22 10/12/22 Range/Units 06:00 06:00 WBC 8.6 (4.5-11.0) X10^3/uL RBC 4.28 (4.0-5.2) X10^6/uL Hgb 12.4 (12.0-16.0) g/dL Hct 36.8 (36-46) % MCV 86.0 (80-100) fL MCH 29.0 (26-34) PG MCHC 33.8 (30-36) % RDW 13.5 (11.6-14.8) % Plt Count 337 (150-400) X10^3/uL Neut % (Auto) 71.7 (50-75) % Lymph % (Auto) 21.3 L (25-40) % [place] % (Auto) 5.8 (3-14) % Eos % (Auto) 0.7 L (2-4) % Baso % (Auto) 0.5 (0-2) % Neut # (Auto) 6200 (3972-9540) /uL Lymph # (Auto) 1800 (4562-8761) /uL [place] # (Auto) 500 (0-900) /uL Eos # (Auto) 100 (0-450) /uL Baso # (Auto) 0 (0-100) /uL Sodium 140 (137-145) mmol/L Potassium 4.1 (3.4-5.1) mmol/L Chloride 106 (98-107) mmol/L Carbon Dioxide 22 (22-32) mmol/L BUN 14 (7-17) mg/dL Creatinine 0.95 (0.52-1.04) mg/dL Estimated GFR > 60 (>60) mL/min BUN/Creatinine Ratio 14.7 (6-22) Glucose 99 (70-100) mg/dL Calcium 8.8 (8.4-10.2) mg/dL Total Bilirubin 0.5 (0.2-1.3) mg/dL AST 19 (14-36) IU/L ALT 18 (<35) IU/L Alkaline Phosphatase 40 (38-126) U/L Total Protein 7.6 (6.3-8.2) g/dL Albumin 4.7 (3.5-5.0) g/dL Globulin 2.9 (1.7-4.1) g/dL Albumin/Globulin Ratio 1.6 (1.0-2.8) Lipase 98 (23-300) U/L HCG, Quant 4527.4 mIU/mL Imaging Data US - OB: Radiologist's Impression: Six week intrauterine regular gestational sac located within lower uterine segment. Contains pole and normal yolk sac. No cardiac activity is seen. It is located within the lower uterine segment. MDM Narrative Medical decision making narrative: This is a 27-year-old female proximally 9 weeks by dates. Patient had hCG yesterday which was 5655, hCG was less than 2.4 on 08/04/2022. Hemoglobin yesterday was 12.4, patient is B positive with negative antibody screen on 10/11/2022. CBC, repeat hCG and Ob ultrasound were obtained to evaluate for ectopic . Patient's hCG is trending down words, ultrasound shows 6 week intrauterine but without cardiac activity, gestational sacs irregular in contour and located lower uterine segment these findings are suspicious for active miscarriage. Patient's ABO, patient is B-positive and does not require RhoGAM. I spoke with Dr. Sierra who is on-call today for OBGYN. He will have the office reach out to the patient today neither see them later today or 1st thing Saturday. Discussed with patient, we discussed return precautions and all questions answered. Discharge Plan Departure Patient Disposition: Home Clinical Impression: Incomplete miscarriage Instructions: DI for Miscarriage Activity Restrictions/Additional Instructions: I spoke with Dr. Sierra with your obstetrics team. The office will be contacting you likely later this morning for follow-up either later today or possibly on Saturday. You can take Tylenol up to a 1000 mg every 6 hours, if in adequate you can take 1-2 tablets of [place] instead of Tylenol. You may take ibuprofen, 600 mg every 6 hours in addition. Please return if you are having rapidly worsening bleeding, lightheadedness or passing out, severe abdominal pain, persistent vomiting, going through more than 1 pad an hour or having other new or concerning changes. Prescriptions: New hydrocodone-acetaminophen 5-325 mg tablet 1 tab PO Q6H PRN (Reason: pain) Qty: 14 0RF No Action prenat.vits,elroy,zfz-wubk-dqwwh Tablet 1 tab PO DAILY bupropion HCl 150 mg tablet extended release 24 hr 150 mg PO QAM cholecalciferol (vitamin D3) [D3-5000] 125 mcg (5,000 unit) capsule 125 mcg PO DAILY magnesium citrate 125 mg capsule 250 mg PO DAILY Airborne (ascorbate sodium) 333-1.7 mg tablet,chewable 1 tab PO DAILY albuterol sulfate 90 mcg/actuation HFA aerosol inhaler 2 puff inhalation Q6H PRN Referrals: Pina Ware MD [Physician] - Provider,Shakila CASILLAS [Primary Care Provider] - Stand Alone Forms: Patient Portal/API
[2022-10-12] MEDS: ONDANSETRON 4 MG/2 ML INJ IV (06:05)
[2022-10-12] MEDS: ACETAMINOPHEN 325 MG TABLET 975 MG PO (06:05)
[2022-10-12 06:06] VITALS: BP 121/80; PULSE 98; RESP 16; TEMP 36.5; BMI 26.9
[2022-10-12 06:13] LABS: Add Manual Diff / Slide Review NO; Basophils Absolute Auto 0 /uL (0-100); Basophils Percent Auto 0.5 % (0-2); Eosinophils Absolute Auto 100 /uL (0-450); Eosinophils Percent Auto 0.7 % (2-4); Hematocrit 36.8 % (36-46); Hemoglobin 12.4 g/dL (12.0-16.0); Lymphocytes Absolute Auto 1800 /uL (1100-4500); Lymphocytes Percent Auto 21.3 % (25-40); Mean Corpuscular HGB Conc 33.8 % (30-36); Monocytes Absolute Auto 500 /uL (0-900); Monocytes Percent Auto 5.8 % (3-14); Neutrophils Absolute Auto 6200 /uL (1500-7000); Neutrophils Percent Auto 71.7 % (50-75); Platelet Count 337 X10^3/uL (150-400); Red Blood Cell Count 4.28 X10^6/uL (4.0-5.2); Red Cell Distribution Width 13.5 % (11.6-14.8); White Blood Cell Count 8.6 X10^3/uL (4.5-11.0)
[2022-10-12 06:26] LABS: Alanine Aminotransferase 18 IU/L (<35); Albumin 4.7 g/dL (3.5-5.0); Albumin Globulin Ratio 1.6 (1.0-2.8); Alkaline Phosphatase 40 U/L (38-126); Aspartate Aminotransferase 19 IU/L (14-36); BUN Creatinine Ratio 14.7 (6-22); Bilirubin Total 0.5 mg/dL (0.2-1.3); Blood Urea Nitrogen 14 mg/dL (7-17); Calcium 8.8 mg/dL (8.4-10.2); Carbon Dioxide 22 mmol/L (22-32); Chloride 106 mmol/L (98-107); Estimated Glomerular Filt Rate > 60 mL/min (>60); Globulin 2.9 g/dL (1.7-4.1); Glucose 99 mg/dL (70-100); HEMOLYSIS < 15 (0-50); Lipase 98 U/L (23-300); Potassium 4.1 mmol/L (3.4-5.1); Sodium 140 mmol/L (137-145); Total Protein 7.6 g/dL (6.3-8.2)
[2022-10-12 06:43] LABS: HCG Quantitative /Beta subunit 4527.4 mIU/mL
[2022-10-12] MEDS: HYDROCODONE/ACET 5/325 PREPACK 1 BOTTLE MISC (07:05)
[2022-10-12 07:18] VITALS: BP 120/77; PULSE 65; RESP 16; TEMP 37.1; O2SAT 99
== END 2022-10-12 07:20 | disposition home or self-care (01) ==
PROVIDERS: Emergency Provider Emergency Medicine
DX: O03.4 Incomplete spontaneous abortion without complication (principal)
CPT/HCPCS: 36415; 76801; 76817; 80053; 83690; 84702; 85025; 96374; 99284; J2405

== ENCOUNTER → 2022-12-21 13:03 | Outpatient (CLI) | payer OTHER, SELFPAY ==
[2022-12-21 15:46] LABS: Thyroid Stimulating Hormone 1.24 uIU/mL (0.47-4.68)
[2022-12-21 17:07] LABS: Progesterone, Total 0.67 ng/mL
[2022-12-24 12:57] LABS: Dilute Russell Viper Venom 30.7 sec (0.0-47.0); Lupus Reflex Interpretation Comment: (.); PTT-LA 34.5 sec (0.0-43.5)
[2023-01-02 13:02] LABS: Cardiolipin IgA Negative (.)
== END ==
PROVIDERS: Referring Provider Obstetrics & Gynecology; Visit Provider Obstetrics & Gynecology
DX: N96 Recurrent pregnancy loss (principal)
CPT/HCPCS: 36415; 81240; 81241; 81291; 83520; 84144; 84439; 84443; 85598; 85613; 86147; 86148

== ENCOUNTER → 2023-12-18 16:43 | Outpatient (CLI) | payer OTHER, SELFPAY ==
[2023-12-18 17:25] LABS: Add Manual Diff / Slide Review NO; Basophils Absolute Auto 0 /uL (0-100); Basophils Percent Auto 0.2 % (0-2); Eosinophils Absolute Auto 100 /uL (0-450); Eosinophils Percent Auto 0.7 % (2-4); Hematocrit 35.3 % (36-46); Hemoglobin 12.1 g/dL (12.0-16.0); Lymphocytes Absolute Auto 2600 /uL (1100-4500); Lymphocytes Percent Auto 22.1 % (25-40); Mean Corpuscular HGB Conc 34.2 % (30-36); Mean Corpuscular Volume 87.7 fL (80-100); Monocytes Absolute Auto 700 /uL (0-900); Monocytes Percent Auto 5.6 % (3-14); Neutrophils Absolute Auto 8400 /uL (1500-7000); Neutrophils Percent Auto 71.4 % (50-75); Platelet Count 347 X10^3/uL (150-400); Red Blood Cell Count 4.02 X10^6/uL (4.0-5.2); Red Cell Distribution Width 12.8 % (11.6-14.8); White Blood Cell Count 11.7 X10^3/uL (4.5-11.0)
[2023-12-18 17:52] LABS: Natera Collection Specimen Collected
[2023-12-18 20:17] LABS: Hepatitis B Surface Antigen NEGATIVE s/c (NEGATIVE)
[2023-12-18 20:40] LABS: HIV 1 & 2 Ab/Ag 4th Gen Combo NEGATIVE (NEGATIVE); Hep C Virus Ab w/Reflex Quant NEGATIVE s/c (NEGATIVE)
[2023-12-20 04:01] LABS: RPR Screen Non Reactive (Non Reactive)
[2023-12-20 08:36] LABS: Varicella IgG Antibody 2998 index (Immune >165)
== END ==
PROVIDERS: Referring Provider Obstetrics & Gynecology; Visit Provider Obstetrics & Gynecology
DX: Z34.81 Encounter for supervision of other normal pregnancy, first trimester (principal); Z3A.10 10 weeks gestation of pregnancy
CPT/HCPCS: 36415; 80055; 86787; 86803; 86850; 86900; 86901; 87086; 87389

== ENCOUNTER → 2023-12-21 18:08 | Outpatient (CLI) | payer OTHER, SELFPAY ==
[2023-12-21 19:06] LABS: Influenza A - CEPHEID Flu A NEGATIVE (NEGATIVE); Influenza B - CEPHEID Flu B POSITIVE (NEGATIVE); Respiratory Syncytial Virus Negative (Negative)
[2023-12-21 19:08] LABS: COVID-19 CEPHEID 4-PLEX PCR Negative (Negative)
== END ==
PROVIDERS: Visit Provider Physician Assistant Surgical
DX: R05.9 Cough, unspecified (principal); J02.9 Acute pharyngitis, unspecified
CPT/HCPCS: 0241U; 87070

== ENCOUNTER → 2024-01-26 12:37 | Outpatient (CLI) | payer OTHER, SELFPAY | PROVIDERS: Visit Provider Physician Assistant Medical | DX: O26.899 Other specified pregnancy related conditions, unspecified trimester (principal); N89.8 Other specified noninflammatory disorders of vagina | CPT/HCPCS: 87210 ==

== ENCOUNTER → 2024-02-03 17:11 | Outpatient (CLI) | payer OTHER, SELFPAY | LOC: LAB 17:12 | PROVIDERS: Referring Provider Obstetrics & Gynecology; Visit Provider Obstetrics & Gynecology | DX: Z34.82 Encounter for supervision of other normal pregnancy, second trimester (principal); Z3A.16 16 weeks gestation of pregnancy | CPT/HCPCS: 36415; 82105 ==

== ENCOUNTER → 2024-02-15 11:33 | Outpatient (CLI) | payer OTHER, SELFPAY | PROVIDERS: Visit Provider Nurse Practitioner Family | DX: J02.9 Acute pharyngitis, unspecified (principal) | CPT/HCPCS: 87070 ==

== ENCOUNTER → 2024-03-04 15:04 | Outpatient (CLI) | payer OTHER, SELFPAY ==
--- NOTE | 2024-03-04 15:04 | DI.US.S_ITS ---
PROCEDURE: US OB >= 14 WEEKS FETUS INDICATIONS: 20 Week Anatomy Scan OUTSIDE/PRIOR DATING DATA: Last menstrual period (LMP): 10/09/2023. LMP-based estimated date of delivery (GIANCARLO): 07/15/2024. First dating scan (date and location): 12/11/2023. Estimated date of delivery (GIANCARLO) from first dating scan: 07/17/2024. The calculations are made using the ultrasound GIANCARLO of 07/17/2024. TECHNIQUE: Real-time scanning was performed of the fetus, with image documentation and biometric measurements. COMPARISON: [facility], US, US OB <= 14 WEEKS FETUS, 12/11/2023, 14:42. FINDINGS: General: A single living intrauterine gestation is present. Presentation: Variable. Placenta: Placental position is posterior , without previa. Amniotic fluid index: 16.7 cm, normal range is 5-24 cm. Single deepest vertical pocket is 4.4 cm. heart rate: 145 beats per minute. Maternal cervical canal: 3.2 cm long. Normal lower limit is 2.5 cm. biometrics: Biparietal diameter: 4.6 cm 20 weeks 0 days Head circumference: 17.9 cm 20 weeks 3 days Abdominal circumference: 16.7 cm 21 weeks 5 days Femur length: 3.5 cm 20 weeks 6 days Clinically estimated gestational age: 21 weeks 0 days Composite gestational age from present scan: 20 weeks 5 days Estimated weight and percentile: 406 g 56th percentile Anatomic survey: Neuro: Ventricles are non-dilated at less than 10 mm. Cisterna magna is normal at 3-11 mm. Cerebellum is normal in size and morphology. Nuchal skin fold: Not well seen Face: Nose and lips, facial profile are within normal limits. Spine: Not well seen. Heart: 4-chambered heart is present, with normal ventricular outflow tracts. Diaphragm: Diaphragm is intact. Stomach: Left-sided stomach is present. Kidneys: No hydronephrosis. Normal is less than 5 mm in 2nd trimester, less than 7 mm in 3rd trimester. Cord: 3-vessel cord has orthotopic insertion. Bladder: Normal in size. Extremities: All 4 extremities identified. IMPRESSION: Single live intrauterine with gestational age today of 20 weeks 5 days. Spine and nuchal region are not well seen. Recommend interval follow-up. We strive to produce accurate, complete, and clear reports of imaging services. To assist us in improving patient care, this report was composed using standard report templates and voice recognition software. Therefore, it may contain abnormal punctuation, insertions and/or omissions. Occasional wrong-word or sound-alike substitutions may occur. Though we review the report and make efforts to correct it, we do recommend that the report be read carefully in proper context to recognize any text inaccuracies. Dictated by: Charisse Sharma M.D. on 03/05/2024 at 11:23 Approved by: Charisse Sharma M.D. on 03/05/2024 at 11:55
== END ==
PROVIDERS: Referring Provider Obstetrics & Gynecology; Visit Provider Obstetrics & Gynecology
DX: Z34.82 Encounter for supervision of other normal pregnancy, second trimester (principal); Z3A.20 20 weeks gestation of pregnancy
CPT/HCPCS: 76811

== ENCOUNTER → 2024-03-30 15:14 | Outpatient (CLI) | payer OTHER, SELFPAY ==
[2024-03-30 17:50] LABS: Hematocrit 31.3 % (36-46); Hemoglobin 10.8 g/dL (12.0-16.0)
[2024-03-30 18:06] LABS: GTT (PREG) 1 Hour PP 50gm Dose 78 mg/dL (76-139)
== END ==
PROVIDERS: Referring Provider Obstetrics & Gynecology; Visit Provider Obstetrics & Gynecology
DX: Z3A.26 26 weeks gestation of pregnancy (principal); Z34.82 Encounter for supervision of other normal pregnancy, second trimester
CPT/HCPCS: 36415; 82950; 85014; 85018

== ENCOUNTER 2024-05-21 11:21 | Outpatient (CLI) | payer OTHER, SELFPAY | END 2024-05-21 12:25 | disposition home or self-care (01) | LOC: LABOR 11:41 → OB 05-26 06:15 | PROVIDERS: Referring Provider Obstetrics & Gynecology; Visit Provider Obstetrics & Gynecology | DX: O26.893 Other specified pregnancy related conditions, third trimester (principal); I73.00 Raynaud's syndrome without gangrene; Z3A.32 32 weeks gestation of pregnancy | CPT/HCPCS: 59025; G0378; G0379 ==

== ENCOUNTER 2024-05-27 09:54 | Outpatient (CLI) | payer OTHER, SELFPAY | END 2024-05-27 10:32 | disposition home or self-care (01) | LOC: LABOR 10:32 → OB 06-02 07:21 | PROVIDERS: Referring Provider Obstetrics & Gynecology; Visit Provider Obstetrics & Gynecology | DX: O26.893 Other specified pregnancy related conditions, third trimester (principal); I73.00 Raynaud's syndrome without gangrene; Z3A.33 33 weeks gestation of pregnancy | CPT/HCPCS: 59025; G0378; G0379 ==

== ENCOUNTER 2024-06-02 16:44 | Outpatient (CLI) | payer OTHER, SELFPAY | END 2024-06-02 17:25 | disposition home or self-care (01) | LOC: OB 06-08 06:35 | PROVIDERS: PCP Nurse Practitioner Family; Referring Provider Obstetrics & Gynecology; Visit Provider Obstetrics & Gynecology | DX: O26.893 Other specified pregnancy related conditions, third trimester (principal); Z3A.33 33 weeks gestation of pregnancy; I73.00 Raynaud's syndrome without gangrene | CPT/HCPCS: 59025; G0378; G0379 ==

== ENCOUNTER 2024-06-17 14:14 | Outpatient (CLI) | payer OTHER, SELFPAY | END 2024-06-17 15:15 | disposition home or self-care (01) | LOC: LABOR 14:24 → OB 06-19 06:15 | PROVIDERS: PCP Nurse Practitioner Family; Referring Provider Obstetrics & Gynecology; Visit Provider Obstetrics & Gynecology | DX: O26.893 Other specified pregnancy related conditions, third trimester (principal); R10.2 Pelvic and perineal pain; I73.00 Raynaud's syndrome without gangrene; Z3A.36 36 weeks gestation of pregnancy | CPT/HCPCS: 59025; G0378; G0379 ==

== ENCOUNTER 2024-06-24 09:48 | Outpatient (CLI) | payer OTHER, SELFPAY | END 2024-06-24 10:25 | disposition home or self-care (01) | LOC: LABOR 10:10 → OB 06-29 09:02 | PROVIDERS: PCP Nurse Practitioner Family; Referring Provider Obstetrics & Gynecology; Visit Provider Obstetrics & Gynecology | DX: O26.893 Other specified pregnancy related conditions, third trimester (principal); O26.23 Pregnancy care for patient with recurrent pregnancy loss, third trimester; I73.00 Raynaud's syndrome without gangrene; Z3A.37 37 weeks gestation of pregnancy | CPT/HCPCS: 59025; 87653; G0378; G0379 ==

== ENCOUNTER → 2024-06-24 09:49 | Outpatient (CLI) | payer OTHER, SELFPAY ==
[2024-06-25 15:12] LABS: Strep Grp B PCR NEG for Grp B Strep
== END ==
PROVIDERS: PCP Nurse Practitioner Family; Visit Provider Obstetrics & Gynecology
DX: Z34.83 Encounter for supervision of other normal pregnancy, third trimester (principal); Z3A.37 37 weeks gestation of pregnancy
CPT/HCPCS: 87653

== ENCOUNTER 2024-07-01 14:57 | Outpatient (CLI) | payer OTHER, SELFPAY | END 2024-07-01 15:40 | disposition home or self-care (01) | LOC: OB 07-02 08:17 | PROVIDERS: PCP Nurse Practitioner Family; Referring Provider Obstetrics & Gynecology; Visit Provider Obstetrics & Gynecology | DX: O26.23 Pregnancy care for patient with recurrent pregnancy loss, third trimester (principal); O26.893 Other specified pregnancy related conditions, third trimester; I73.00 Raynaud's syndrome without gangrene; Z3A.38 38 weeks gestation of pregnancy | CPT/HCPCS: 59025; G0378; G0379 ==

== ENCOUNTER 2024-07-07 19:08 | Inpatient (IN) | payer OTHER, SELFPAY ==
[2024-07-07 22:43] LABS: Add Manual Diff / Slide Review NO; Basophils Absolute Auto 0 /uL (0-100); Basophils Percent Auto 0.3 % (0-2); Eosinophils Absolute Auto 100 /uL (0-450); Eosinophils Percent Auto 0.5 % (2-4); Hematocrit 34.4 % (36-46); Hemoglobin 11.9 g/dL (12.0-16.0); Lymphocytes Absolute Auto 2600 /uL (1100-4500); Lymphocytes Percent Auto 20.7 % (25-40); Mean Corpuscular HGB Conc 34.7 % (30-36); Mean Corpuscular Hemoglobin 31.7 PG (26-34); Mean Corpuscular Volume 91.2 fL (80-100); Monocytes Absolute Auto 1100 /uL (0-900); Monocytes Percent Auto 8.7 % (3-14); Neutrophils Absolute Auto 8900 /uL (1500-7000); Neutrophils Percent Auto 69.8 % (50-75); Platelet Count 243 X10^3/uL (150-400); Red Blood Cell Count 3.77 X10^6/uL (4.0-5.2); Red Cell Distribution Width 13.8 % (11.6-14.8); White Blood Cell Count 12.7 X10^3/uL (4.5-11.0)
[2024-07-07] MEDS: miSOPROStoL 25 MCG TABLET 50 MCG PO (22:48)
[2024-07-07 23:01] VITALS: BP 98/61
[2024-07-08] MEDS: miSOPROStoL 25 MCG TABLET 50 MCG PO (02:48)
--- NOTE | 2024-07-08 08:14 | PM.OBHP.1 ---
OB HPI Date/Time Date of admission: 07/07/24 Date Patient Seen: 07/08/24 Time Patient Seen: 07:30 History of Present Condition Chief complaint: Induction of labor for Raynaud's at 39 weeks : 3 Para: 0 Estimated Date of Delivery: 07/15/24 Estimated Gestational Age (weeks): 39 Narrative: Sammi Meade is a 28 year old female admitted for prostaglandin induction for Raynaud's at 39 weeks. Indications Indication for induction OB: other (Raynaud's) History of Present care: good care, initiated at week # (9), number of visits (11) and pounds weight gain (42) Dating criteria: LMP confirmed by 1st trimester US Ultrasounds: normal mid trimester US Obstetrical complications: none Medical complications: none Preadmission Labs Blood type: B (+) positive -: Antibody screen: negative, GBS status: negative, HBsAG: negative, HIV: negative and RPR/VDLR: negative -: Chlamydia screen: not detected and Gonorrhea screen: not detected -: Rubella: immune and Varicella: immune HCAB: negative Cell-free DNA: Normal female, normal AFP 1 hr GTT: 78 Evaluation Evaluation Baseline heart rate: 125 Variability: Moderate (11-25) monitor accelerations: Present Monitor Decelerations: Absent Contraction Frequency (minutes): 7 Uterine Contraction Intensity: Mild Category of Tracing: Reactive Status: Category l Dilation (cm): 1 Effacement: 40-50% station: -1 Position of cervix: posterior Consistency: medium [facility] Medical History Irritable bowel Asthma (~2020) Shingles (~2017) Chicken pox (~1998) Miscarriage (~2021) Exercise-induced asthma Generalized anxiety disorder Surgical History History of dilation and curettage Family History Mother Adopted Depression Anxiety ADHD Grandfather Migraine Grandmother Alcohol abuse Family/Other Alcohol abuse Depression Father History of back surgery Nerve damage Social History marital status: number of children: 0 household members: spouse lives independently: Yes caregiver/support person: No housing: house pets and animals: Yes (2 dogs) education level: master's degree occupational status: employed (teaches middle school) current occupational exposures/hazards: No special shireen needs: No travel history: over 6 months ago seatbelt use: always water heater temp set < 120 deg: Yes working smoke detector in home: Yes fire extinguisher in home: Yes carbon monox detector in home: Yes firearms in home: Yes firearms unloaded and locked: Yes do you feel safe at home: Yes Smoking Status: Never smoker second hand exposure: No alcohol intake: former (0-1/week when not ) substance use type: does not use during the past year weight has: decreased > 10 lbs well-balanced diet: daily or most days daily servings fruits/ve or more times/day caffeine: Yes Type(s) of exercise: yoga Meds Home Medications and Allergies Home Medications Medication Instructions Recorded Confirmed Type albuterol sulfate 90 mcg/actuation 2 puff inhalation Q6H PRN 09/25/22 07/07/24 History aerosol inhaler Bronchospasm prenat.vits,elroy,[id number] 1 tab PO DAILY 09/25/22 07/07/24 History aspirin 81 mg tablet,delayed 81 mg PO DAILY 12/04/23 07/07/24 History release breast pump #1 ea 03/30/24 07/07/24 Rx Allergies Allergy/AdvReac Type Severity Reaction Status Date / Time Penicillins Allergy Intermediate Hives Verified 07/01/24 13:57 pseudoephedrine Allergy Intermediate Hives Verified 07/01/24 13:57 bupropion AdvReac Intermediate Abdominal Verified 07/01/24 13:57 Pain Review of Systems Review of Systems Narrative: Patient denies any leakage of fluid or vaginal bleeding. Good movement. She has not feeling contractions. No headaches, scotomata, epigastric pain. OB Exam Vital signs Blood Pressure: 105/63 Pulse Rate: 91 Temperature: 36.2 F Narrative Exam Narrative: HEENT exam within normal limits. Lungs are clear to auscultation percussion. Heart is regular rate and rhythm no S3-S4 murmurs. No thyromegaly. Abdomen is soft, nontender. Uterus is gravid. Fetus is vertex estimated weight 6-1/2-7 lb. Extremities without edema and nontender. Objective Labs 07/07/24 22:26 Labs: Laboratory Results - last 24 hr 07/07/24 22:26 WBC 12.7 H RBC 3.77 L Hgb 11.9 L Hct 34.4 L MCV 91.2 MCH 31.7 MCHC 34.7 RDW 13.8 Plt Count 243 Neut % (Auto) 69.8 Lymph % (Auto) 20.7 L [place] % (Auto) 8.7 Eos % (Auto) 0.5 L Baso % (Auto) 0.3 Neut # (Auto) 8900 H Lymph # (Auto) 2600 [place] # (Auto) 1100 H Eos # (Auto) 100 Baso # (Auto) 0 Blood Type B Positive Antibody Screen Negative Assessment and Plan Assessment and Plan Assessment and Plan narrative: EDC 07/15 at 39 weeks' gestation admitted for induction for Raynaud's. She received 2 doses of Cytotec overnight. This morning discussion of her cervical exam and where to proceed from here. Patient was agreeable for placement of Reece bulb. A Reece bulb was placed through the cervix and inflated with 60 cc of saline. Discussion of likely dilation to 4-5 cm in the next 3-4 hours. Decision at that point for AROM or Pitocin. She patient at this point wishes to ambulate as much as possible. She has no specific plans for control. Time-Based Coding :: [TOTAL MINUTES] spent with patient and on the chart (including review of chart, obtaining history, exam, reviewing outside data, placing orders, documenting exam and treatment plan, and counseling patient) on [DATE].
[2024-07-08 08:21] VITALS: BP 105/63; PULSE 91; TEMP 2.3; TEMP 36.2
--- NOTE | 2024-07-08 12:04 | PM.OBPNLAB ---
Date/Time Date Patient Seen: 07/08/24 Time Patient Seen: 12:05 Pain Control Pain control: tolerating well Pelvic Exam Dilation (cm): 5 Effacement (%): 80 station: -2 Amniotic membrane status: Intact Contractions Contractions on admission: irregular Monitor mode: External Contraction frequency (min): 5 Contraction duration (min): 1 Contraction pattern: Irregular Contraction intensity: Mild Status status: Category l Heart Rate Baseline: 130 Monitor Accelerations: Present Monitor Decelerations: Absent Monitor Variability: Moderate Assessment and Plan Assessment: induction ongoing Plan: begin patient augmentation (Begin Pitocin)
[2024-07-08] MEDS: OXYTOCIN PREMIX 30 UNIT/500 ML PLAST..BAG IV (12:16)
[2024-07-08] MEDS: LACTATED RINGERS 1,000 ML 100 ML IV (12:18)
--- NOTE | 2024-07-08 15:26 | PM.OBPNLAB ---
Date/Time Date Patient Seen: 07/08/24 Time Patient Seen: 03:00 Pain Control Pain control: tolerating well Pelvic Exam Dilation (cm): 6 Effacement (%): 80 station: -1 Amniotic membrane status: Ruptured (arom) Contractions Contractions on admission: regular Monitor mode: External Pitocin rate (mU/min): 12 Contraction frequency (min): 3 Contraction duration (min): 1 Contraction pattern: Regular Contraction intensity: Mild Status status: Category l Heart Rate Baseline: 135 Monitor Accelerations: Present Monitor Decelerations: Absent Monitor Variability: Moderate Assessment and Plan Assessment: induction ongoing
--- NOTE | 2024-07-08 18:13 | PM.AN.REGBLK ---
Regional Block Pre-procedure Procedure: Continuous Lumbar Epidural for L&D (with dural puncture) Attending OB provider: Harmony Strange PMH/ROS narrative: 28yo female in labor requesting epidural. See pre-anesthesia evaluation for more details. ASA Class: II Labs: Hct 34.4 % (36-46) L 07/07/24 22:26 Plt Count 243 X10^3/uL (150-400) 07/07/24 22:26 Medications: Current Medications Generic Name Dose Route Start Last Admin Trade Name Freq PRN Reason Stop Dose Admin Calcium Carbonate 1,000 mg 07/07/24 22:35 Calcium Carbonate 500 Mg Tab PO Q2HR PRN Dyspepsia Carboprost Tromethamine 250 mcg 07/07/24 22:35 Carboprost 250 Mcg/Ml Ampul IM Q90M PRN Bleeding Diphenhydramine HCl 25 mg 07/08/24 18:11 Diphenhydramine 50 Mg/Ml Vial IV Q10M PRN Pruritis Diphenhydramine HCl 25 mg 07/08/24 18:12 Diphenhydramine 50 Mg/Ml Vial IV 07/09/24 18:12 Q3HR PRN PRURITUS Ephedrine Sulfate 10 mg 07/08/24 18:11 Ephedrine 50 Mg/Ml Vial IV Q5M PRN Blood pressure decrease more than 20% of baseline. Fentanyl 50 mcg 07/07/24 22:35 Fentanyl 100 Mcg/2 Ml Inj IV Q1H PRN Pain, Moderate (4-6) Oxytocin/Lactated Ringer's 30 unit in 500 mls @ 2 mls/hr 07/07/24 22:45 07/08/24 12:16 Oxytocin Premix IV 2 milliunit/min TITRATE AZIZA 2 mls/hr Administration Protocol 2 MILLIUNIT/MIN Oxytocin/Lactated Ringer's 30 unit in 500 mls @ 200 mls/hr 07/07/24 22:35 Oxytocin Premix IV CONT PRN Bleeding Protocol Tranexamic Acid 1,000 mg/ 100 mls @ 600 mls/hr 07/07/24 22:35 Sodium Chloride IV NOW PRN Bleeding Oxytocin/Lactated Ringer's 30 unit in 500 mls @ 3 mls/hr 07/08/24 12:04 Oxytocin Premix IV TITRATE AZIZA Protocol 3 MILLIUNIT/MIN FENT 2MCG/ML BUPIV 0.125% EPI 200 mcg in 100 mls @ 6 mls/hr 07/08/24 18:15 Fentanyl/Bupiv/Ns 2mcg/Ml - 0.125% EPIDURAL CONT AZIZA Lidocaine HCl 20 ml 07/07/24 22:35 Lidocaine 1% 20 Ml INJ INTRA-OP PRN Post Delivery Methylergonovine Maleate 0.2 mg 07/07/24 22:35 Methylergonovine 0.2 Mg/Ml Vial IM NOW PRN Bleeding Methylergonovine Maleate 0.2 mg 07/07/24 22:35 Methylergonovine 0.2 Mg Tablet PO Q6HR PRN Heavy Bleeding Metoclopramide HCl 10 mg 07/08/24 18:12 Metoclopramide 10 Mg/2 Ml Inj IV 07/09/24 18:12 Q4H PRN Nausea Mineral Oil 30 ml 07/07/24 22:35 Mineral Oil 30 Ml Udc TOP PRN PRN Version Misoprostol 50 mcg 07/07/24 22:35 07/08/24 02:48 Misoprostol 25 Mcg Tablet PO 50 mcg Q4H PRN Administration cervical ripening Misoprostol 400 mcg 07/07/24 22:35 Misoprostol 200 Mcg Tablet SL NOW PRN Bleeding Misoprostol 800 mcg 07/07/24 22:35 Misoprostol 200 Mcg Tablet VT NOW PRN Bleeding Nalbuphine HCl 2.5 mg 07/08/24 18:11 Nalbuphine 20 Mg/Ml Ampul IV Q10M PRN Pruritis Naloxone HCl 0.2 mg 07/07/24 22:35 Naloxone 0.4 Mg/Ml Vial IV Q2MIN PRN Opiate Reversal Ondansetron HCl 4 mg 07/07/24 22:35 Ondansetron 4 Mg/2 Ml Inj IV Q4HR PRN Nausea And Vomiting Ondansetron HCl 4 mg 07/08/24 18:12 Ondansetron 4 Mg/2 Ml Inj IV 07/09/24 18:12 Q6HR PRN Nausea Oxytocin 10 unit 07/07/24 22:35 Oxytocin 10 Unit/Ml Vial IM NOW PRN Bleeding Allergies: Allergies Allergy/AdvReac Type Severity Reaction Status Date / Time Penicillins Allergy Intermediate Hives Verified 07/01/24 13:57 pseudoephedrine Allergy Intermediate Hives Verified 07/01/24 13:57 bupropion AdvReac Intermediate Abdominal Verified 07/01/24 13:57 Pain Procedure Insertion date: 07/08/24 Insertion time: 17:52 Prep/Local: 1% lidocaine (Chloraprep) Interspace: L3-4 Patient position: sitting Needle: 18 gauge Hustead (27g 5 Pencan needle for dural puncture) Loss of resistance with: saline STEW at (cm): 7 Catheter placed at SKIN (cm): 15 Catheter in SPACE (cm): 8 Insertion: No CSF, No Blood, Yes Paresthesia with insertion, No Paresthesia with injection and No Test dose reaction Initial Medications TEST DOSE time: 17:53 TEST DOSE: 1.5% lidocaine with epinephrine 1:200k (mL): 3 BOLUS DOSE time: 17:55 BOLUS DOSE (mL): 2 BOLUS DOSE med: other (Same as test dose. Dural puncture at 17:51 with no intrathecal meds given. ) Infusion INFUSION: 0.125% bupivacaine and with fentanyl 2 mcg/mL Initial rate (mL/hr): 10 Subsequent interventions: Time-out pre-procedure at 17:42. Epidural pump stated at 18:07 after clinician bolus of 5 ml of epidural infusion. Pt reports BLE warm and tingly and heavy but contraction pain is 7/10. 18:21 - Pt comfortable and smiling. Reports contraction pain 2/10. BLE very heavy with decreased mobility; told pt to anticipate that improving as the initial medicine wears off. KR Post-procedure Anesthesia date START: 07/08/24 Anesthesia time START: 17:42 Anesthesia date END: 07/08/24 Anesthesia time END: 22:00 Post-procedure Anesthesia Assessment: Yes CV function: HR/BP stable, Yes Resp function: RR/sat/airway adequate, Yes Post-op hydration adequate, Yes Pain control adequate, Yes Nausea & vomiting absent, Yes Temperature > 36 C, Yes Mental status appropriate and No Anesthesia complications
[2024-07-08] MEDS: ePHEDrine 50 MG/ML VIAL 10 MG IV (19:02)
--- NOTE | 2024-07-08 19:56 | PM.OBPNLAB ---
Date/Time Date Patient Seen: 07/08/24 Time Patient Seen: 19:56 Pain Control Pain control: epidural Pelvic Exam Dilation (cm): 7 Effacement (%): 90 station: -1 Amniotic membrane status: Ruptured (arom) Contractions Monitor mode: External Pitocin rate (mU/min): 14 Contraction frequency (min): 3 Contraction duration (min): 1 Contraction pattern: Regular Contraction intensity: Strong/Firm Status status: Category l Heart Rate Baseline: 140 Monitor Accelerations: Present Monitor Decelerations: Absent Monitor Variability: Moderate Assessment and Plan Plan: continuous present management
[2024-07-08] MEDS: miSOPROStoL 200 MCG TABLET 800 MCG PR (22:15)
[2024-07-08] MEDS: LIDOCAINE 1% 20 ML INJ (22:20)
--- NOTE | 2024-07-08 22:32 | P.PCNOB_ITS ---
Labor & Delivery Delivery date: 07/08/24 Intrapartal Events: None Cervical ripening method: per misoprostal protocol (Followed by Reece bulb) Delivery augmentation: rupture of membranes and pitocin Delivery monitor: external FHT and external uterine Route of delivery: L&D Laceration Description: Vaginal - 2nd Degree and Labial (Right) Delivery repair: chromic (3-0) Estimated blood loss (mL): 850 Quantitative Blood Loss: 900 Anesthesia Type: Epidural Narrative: Patient arrived on Labor and delivery for induction for Raynaud's at 39 weeks. She received Cytotec orally x2. A Reece bulb was placed. After spontaneous passage of the Reece bulb through the cervix the patient was found to be 5 cm dilated. Pitocin was started. She was AROM for clear fluid. She received an epidural catheter for pain control. Throughout labor the heart tones were reassuring category 1 to category 2. She had a 60 minute 2nd stage of labor. She delivered spontaneously over an intact perineum a viable female infant which was placed on maternal abdomen. After the cord stopped pulsating the cord was clamped, cut, and cord bloods obtained. The placenta delivered spontaneously intact with 3 vessels. 3rd stage of labor 6 minutes. There were no cervical tears. A second-degree vaginal tear was repaired with 3-0 chromic suture. 1 stitch was placed in a tear in the right labia minora. There was a hematoma that seemed to form at the repair site but was monitored for greater than 10 minutes without growth. After delivery this placenta the Pitocin was increased to 300 cc per hour. She continued to have heavier bleeding so she had 800 mcg of Cytotec placed rectally. Estimated blood loss 850 cc. Both and mother doing well. Stanley Baby 1: gender: Female Presentation: vertex Position: Right Occiput Anterior Placenta delivery description: Spontaneous Cord Vessel Description: 3 Vessels score (1 min): 8 score (5 min): 9 weight: 7 lb Plan for aftercare: Routine care
[2024-07-09] MEDS: DERMOPLAST SPRAY 20% 60 ML 1 SPRAY TOP (03:15)
[2024-07-09] MEDS: WITCH HAZEL/GLYCERIN PADS 1 EACH TOP (03:15)
[2024-07-09 06:25] LABS: Hematocrit 30.6 % (36-46); Hemoglobin 10.3 g/dL (12.0-16.0)
[2024-07-09] MEDS: FERROUS SULFATE 325 MG TABLET PO (08:09)
[2024-07-09] MEDS: IBUPROFEN 600 MG TABLET PO ×3 (08:09→22:07)
[2024-07-09] MEDS: PRENATAL VIT,CALC/IRON/FOLIC 1 TABLET 1 TAB PO (08:09)
--- NOTE | 2024-07-09 11:41 | PM.OBPN.1 ---
Subjective - OB Subjective Patient comments: other (Tailbone pain) baby status: doing well and nursing well feeding status: exclusively breast feeding Date Patient Seen: 07/09/24 Time Patient Seen: 11:42 Interval history: Patient approximately 12 hours doing well. She is exclusively and working on latching. No headaches. She has ?tailbone? pain. She is urinating well. Some stinging with urination. She is ambulating well. Exam Vital Signs (past 8 hours): Blood pressure 104/64, pulse of 84, temperature 98.5? Narrative Exam Narrative: Abdomen is soft, nontender. Uterus is firm, at U, nontender. Mild lochia. Perineal repair intact without evidence hematoma. Extremities without edema and nontender Objective Labs 07/09/24 06:14 Labs: Laboratory Results - last 24 hr 07/09/24 06:14 Hgb 10.3 L Hct 30.6 L Assessment & Plan Plan day: 0 plan OB: routine care Time-Based Coding :: [TOTAL MINUTES] spent with patient and on the chart (including review of chart, obtaining history, exam, reviewing outside data, placing orders, documenting exam and treatment plan, and counseling patient) on [DATE].
[2024-07-10] MEDS: IBUPROFEN 600 MG TABLET PO (04:07)
--- NOTE | 2024-07-10 07:59 | PM.OBDS.1 ---
Discharge Providers Provider Date of admission: 07/07/24 19:08 Discharge Date: 07/10/24 Primary care physician: OCHOA Mera Consults: 07/07/24 22:35 Consult to Anesthesiology Urgent Comment: Consulting Provider: Anesthesiologist Reason for consultation: Epidural Has provider been notified: No 07/09/24 22:29 Consult to Dispensing And Measuring Optician Routine Comment: Discharge provider: Harmony Strange MD Summary Hospital Course Date Patient Seen: 07/10/24 Time Patient Seen: 07:59 Diagnoses: 39 week gestation with Raynaud's Hospital Course: Patient was admitted for induction for 39 week gestation with Raynaud's. She received Cytotec, and Reece bulb for cervical ripening. She received Pitocin and AROM for induction. She had an epidural catheter for pain control. She had a spontaneous vaginal delivery of a viable female . She is breast-feeding without difficulty. She is urinating and ambulating well. Tailbone pain is improving with Motrin. Peripartum Data Infant Delivery Method: Natural Vaginal Laceration Description: Vaginal - 1st Degree and Labial (Right) Procedures: Induction, epidural catheter, spontaneous vaginal delivery complications: none 1: Gender: Female Disposition of : home Discharge Diagnosis (1) Vaginal delivery: Status: Acute (2) Raynaud's disease: Status: Acute Status at Discharge Cognitive/behavioral status at discharge: oriented Functional status at discharge: independent ambulation Overall status at discharge: patient is progressing back to baseline Time Spent with Patient Time attestation: Total time spent providing and/or coordinating discharge services: Time spent: Less than 30 minutes Objective Labs 07/09/24 06:14 Exam Vital Signs (past 8 hours): Blood pressure 103/70, pulse of 84, temperature 98? Narrative Exam Narrative: Abdomen is soft, nontender. Uterus is firm, at U, nontender. Repair is intact. Extremities without edema and nontender. Discharge Plan Discharge Plan Patient Disposition: Home Discharge orders & Medications Prescriptions: Continued prenat.vits,elroy,jwz-fqzg-fezqm Tablet 1 tab PO DAILY albuterol sulfate 90 mcg/actuation HFA aerosol inhaler 2 puff inhalation Q6H PRN (Reason: Bronchospasm) Discontinued aspirin 81 mg tablet,delayed release (DR/EC) 81 mg PO DAILY No Action (DME) breast pump Device See Rx Instructions .Route Qty: 1 0RF Rx Instructions: Double electric pump Follow up/Referrals: Darien Green ARNP [Primary Care Provider] - Pina Ware MD [Physician] - 6 Weeks () Diet/Activity/Treatments Diet: Regular Activity: Nothing in vagina for 6 weeks Skin/Wound/Dressing Care Report to your healthcare provider any signs of infection, such as:: chills, fever and increased pain Visit Report/Discharge Packet Stand Alone Forms: Patient Portal/API, Stroke Signs & Symptoms Discharge Data Primary Care Provider: Darien Green
[2024-07-10] MEDS: WITCH HAZEL/GLYCERIN PADS 1 EACH TOP (08:50)
[2024-07-10] MEDS: PRENATAL VIT,CALC/IRON/FOLIC 1 TABLET 1 TAB PO (08:51)
[2024-07-10] MEDS: ACETAMINOPHEN 325 MG TABLET 650 MG PO (08:51)
[2024-07-10] MEDS: FERROUS SULFATE 325 MG TABLET PO (08:51)
[2024-07-10] MEDS: DERMOPLAST SPRAY 20% 60 ML 1 SPRAY TOP (08:51)
[2024-07-10] MEDS: LANOLIN OINT 7 GM 1 APPLIC TOP (08:51)
[2024-07-10 10:18] VITALS: BP 105/63; PULSE 91; TEMP 2.3; TEMP 36.2
== END 2024-07-10 11:45 | disposition home or self-care (01) | DRG 807 ==
PROVIDERS: Specialist; Admitting Provider Obstetrics & Gynecology; PCP Nurse Practitioner Family; Referring Provider Obstetrics & Gynecology; Visit Provider Obstetrics & Gynecology
DX: O75.89 Other specified complications of labor and delivery (principal); Z37.0 Single live birth; I73.00 Raynaud's syndrome without gangrene; O70.1 Second degree perineal laceration during delivery; Z3A.39 39 weeks gestation of pregnancy
CPT/HCPCS: 36415; 59050; 59200; 59400; 59409; 85014; 85018; 85025; 86850; 86900; 86901; G0379; J2590; S0191

== ENCOUNTER → 2024-08-25 09:31 | Outpatient (CLI) | payer OTHER, SELFPAY ==
[2024-08-25 10:27] LABS: Appearance Urine UA CLEAR; Bilirubin Urine UA NEGATIVE (NEGATIVE); Color Urine UA YELLOW; Glucose Urine UA NEGATIVE (Negative); Ketones Urine UA NEGATIVE (NEGATIVE); Leukocyte Esterase Urine UA NEGATIVE (NEGATIVE); Nitrite Urine UA NEGATIVE (Negative); Occult Blood Urine UA NEGATIVE (Negative); Protein Urine UA NEGATIVE (Negative); Specific Gravity Urine UA <=1.005 (1.000-1.035); Urobilinogen Urine UA 0.2 E.U./dL (0.2)
[2024-08-25 10:38] LABS: Bacteria Urine None Seen; Culture Indicated Urine Cult Not Indicated; RBC Urine None Seen (0-5/HPF); Squamous Epithelial Cell Urine None Seen (0-5/HPF); Urine Volume 10mL (spun); WBC Urine None Seen (0-5/HPF)
== END ==
PROVIDERS: PCP Nurse Practitioner Family; Referring Provider Obstetrics & Gynecology; Visit Provider Obstetrics & Gynecology
DX: R30.0 Dysuria (principal)
CPT/HCPCS: 81001

== ENCOUNTER 2024-09-14 11:12 | Day surgery (SDC) | payer OTHER, SELFPAY ==
[2024-09-09 13:14] VITALS: BMI 25.9
[2024-09-14 12:01] VITALS: BMI 25.8
[2024-09-14 12:05] VITALS: BP 103/73; PULSE 64; RESP 16; TEMP 36.3; O2SAT 98
[2024-09-14] MEDS: LACTATED RINGERS 1,000 ML 42 ML IV (12:15)
--- NOTE | 2024-09-14 12:48 | P.HPOB_ITS ---
History of Present Illness History of Present Illness Narrative: Sammi Meade is a 29 year old female 3 para 1 with granulation tissue at the previous obstetrical laceration site. Failed conservative management with silver nitrate treatment in the office. [facility] Medical History Irritable bowel Asthma (~2020) Shingles (~2017) Chicken pox (~1998) Miscarriage (~2021) Exercise-induced asthma Generalized anxiety disorder Surgical History History of dilation and curettage Family History Mother Adopted Depression Anxiety ADHD Grandfather Migraine Grandmother Alcohol abuse Family/Other Alcohol abuse Depression Father History of back surgery Nerve damage Social History marital status: number of children: 0 household members: spouse and children lives independently: Yes caregiver/support person: No housing: house pets and animals: Yes (2 dogs) education level: master's degree occupational status: employed (teaches middle school) current occupational exposures/hazards: No special shireen needs: No travel history: over 6 months ago seatbelt use: always water heater temp set < 120 deg: Yes working smoke detector in home: Yes fire extinguisher in home: Yes carbon monox detector in home: Yes firearms in home: Yes firearms unloaded and locked: Yes do you feel safe at home: Yes Smoking Status: Never smoker second hand exposure: No alcohol intake: former substance use type: does not use during the past year weight has: decreased > 10 lbs well-balanced diet: daily or most days daily servings fruits/ve or more times/day caffeine: Yes Type(s) of exercise: yoga Meds Home Medications and Allergies Home Medications Medication Instructions Recorded Confirmed Type albuterol sulfate 90 mcg/actuation 2 puff inhalation Q6H PRN 09/25/22 09/14/24 History aerosol inhaler Bronchospasm prenat.vits,elroy,rae-exvm-jhymu 1 tab PO DAILY 09/25/22 09/14/24 History breast pump #1 ea 03/30/24 09/03/24 Rx Allergies Allergy/AdvReac Type Severity Reaction Status Date / Time Penicillins Allergy Intermediate Hives Verified 09/14/24 12:00 pseudoephedrine Allergy Intermediate Hives Verified 09/14/24 12:00 bupropion AdvReac Intermediate Abdominal Verified 09/14/24 12:00 Pain Exam Vital Signs (past 8 hours): - 09/14/24 12:05 Temperature 97.4 F L Pulse Rate 64 Respiratory Rate 16 Blood Pressure 103/73 Pulse Oximetry 98 Narrative Exam Narrative: HEENT: No thyromegaly, no anterior cervical or supraclavicular lymphadenopathy. Lungs:Clear to auscultation bilaterally, no wheezes. Cardiovascular: Regular rate and rhythm, no murmurs, rubs, or gallops. Abdomen: No scars. No hepatosplenomegaly. No masses palpable. External genitalia: Normal Vagina: Just inside the introitus on the left side there is a large area of granulation tissue. Cervix: Normal Bimanual exam: 6 Week size uterus. Mobile. Assessment & Plan Assessment & Plan narrative: Assessment: 29-year-old 3 para 1 with unhealed granulation tissue at the obstetrical laceration site Failed conservative management with treatment of silver nitrate in the office Plan: Excision of granulation tissue The risks, benefits, and alternatives to the procedure were explained to the patient. The risks including bleeding and infection. She understands these risks and agrees to proceed. A full par Q was held and consent form was signed. Time-Based Coding :: [TOTAL MINUTES] spent with patient and on the chart (including review of chart, obtaining history, exam, reviewing outside data, placing orders, documenting exam and treatment plan, and counseling patient) on [DATE].
--- NOTE | 2024-09-14 12:50 | PM.PREOP ---
Pre-operative Note Interval Note History & Physical reviewed/Exam performed by Physician: Yes Changes to H&P: No H&P completed within 30 days and has changed as indicated here:: 09/14/24
--- NOTE | 2024-09-14 13:10 | SUR.OPER ---
Lithotomy on padded OR bed, head on pillow, arms secured on padded arm boards at <90 degrees abduction. Legs secured in padded yellow fins stirrups.
[2024-09-14] MEDS: BUPIVACAINE 0.5% W/ EPI (PF) 30 ML VIAL INJ (13:21)
[2024-09-14 13:52] VITALS: BP 104/67; PULSE 75; RESP 18; TEMP 36.1; O2SAT 100
[2024-09-14 13:57] VITALS: BP 111/64; PULSE 75; RESP 17; O2SAT 100
[2024-09-14 14:02] VITALS: BP 108/75; PULSE 73; RESP 13; O2SAT 100
[2024-09-14 14:04] VITALS: BP 114/84; PULSE 80; RESP 11; TEMP 36.3; O2SAT 100
--- NOTE | 2024-09-14 14:09 | PM.GYNOP.1 ---
Operative Date/Time/Diagnoses Date of procedure: 09/14/24 Time of procedure: 14:09 Pre-op diagnosis: Persistent granulation tissue from an obstetrical laceration site Post-op diagnosis: same Procedure & Clinicians Procedure: Procedures Operation Date: 09/14/24 13:00 Actual Procedure Side Surgeon p Perineoplasty Pina Ware MD Indications: 29-year-old 3 para 1 with persistent granulation tissue from an obstetrical laceration site. Attempted conservative management in the office x2 Surgeon: Pina Ware Anesthesia Type: MAC +/- Operative Notes Findings: Granulation tissue on the left side of the introitus Granulation tissue to the left of midline in the vagina Closure Type: primary Specimen(s): none Estimated blood loss (mL): 4 Blood products transfused: none Procedure in detail: After informed consent was obtained, the patient was taken to the operating room where she was placed in the dorsal supine position. After monitored anesthesia was administered she was placed in the dorsal lithotomy position, and prepped and draped in the usual sterile fashion. A time-out was performed. 8 cc 0.5% Marcaine with epinephrine were injected below both areas of granulation tissue. The granulation tissue was grasped with an Allis clamp. Using a # 10 blade, the areas of granulation tissue were excised. The Bovie was used for hemostasis. 3-0 chromic suture was used to reapproximate both areas. Hemostasis was achieved. The areas were well approximated. Complications: none Post-operative Condition: stable Disposition: PACU Plan for aftercare: Home after recovery
== END 2024-09-14 14:36 | disposition home or self-care (01) ==
PROVIDERS: Referring Provider Obstetrics & Gynecology; Visit Provider Obstetrics & Gynecology
PROC: (CPT 59300; principal; 2024-09-14 13:00)
DX: L92.0 Granuloma annulare (principal)
CPT/HCPCS: 56810; J1100; J2704